=== PATIENT | male | born 1965 | race Caucasian/White ===

== ENCOUNTER 2024-03-27 15:37 | Outpatient (REF) | payer OTHER, SELFPAY | END 2024-03-27 15:38 | disposition home or self-care (01) | LOC: HO.CT 15:37 | PROVIDERS: PCP Internal Medicine; Visit Provider Registered Nurse | DX: G31.84 Mild cognitive impairment of uncertain or unknown etiology (principal) | CPT/HCPCS: 70450 ==

== ENCOUNTER 2024-12-25 11:49 | Outpatient (AMB) | payer OTHER, SELFPAY ==
--- OUTSIDE RECORDS SUMMARY | 2024-12-25 11:52 | XMS_ITS ---
Author Name [facility] Organization Unknown Care Team Organization Name Specialty Phone Email Start Date End Da te [facility] Michelle Roa [facility] 03/05/2023 12/23/19 [facility] Elmo New [facility] 01/10/202312/04 [facility] DEBORAH ANGELO Primary Care 03/13/2022
--- NOTE | 2024-12-25 12:16 | MHC.OFFVIS ---
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 Hard time falling asleep. Burning/shooting pain/numbness/tinging in legs. Sleep study done earlier this year(normal). Patient states last sleep study was 05/2024. Currently on CPAP([employer] for DME). Accompanied by: Self / Same As Patient Allergies lisinopril Allergy (Unknown, Verified 12/25/24 12:22) Cough HPI Comments Details: 59 year old male is a new patient referral, he was referred to us by Neurologist in [facility] for a sleep evaluation. He goes to sleep at 9pm and gets up at 5am to 8am, he has 0-1 bathroom breaks. He has morning headaches 2-3x per week and takes tylenol if they do not go away he knows he will suffer for the entire day. He grinds his teeth and clenches the jaws and will have jaw pain throughout the day. Memory is stable though now more forgetful on trazadone. RLS syndrome taking gabapentin, has neuropathy in hands with numbness tingling and radiating pain, Mood is anxious due to loss of work and arthritis in back in both knees, f/u with [facility] [place] [id number] for cortisone injections. Sertraline 50mg for anxiety. Gel - injections if insurance approves. Weight clinic declines BMI 46.2. [facility] Medical History Hyperlipemia HTN (hypertension) Type 2 diabetes mellitus Family History Mother Neuropathy Social History Patient Tobacco Use Status: Never used Tobacco e-Cigarette/Vaping Use: Never Used Physical Exam Vital Signs: Last Vital Signs Pulse 88 12/25/24 12:19 BP 130/78 12/25/24 12:19 Pulse Ox 96 12/25/24 12:19 Oxygen Delivery Method Room Air 12/25/24 12:19 BMI result Body Mass Index 46.2 Const General: cooperative, comfortable and no acute distress Nutritional Appearance: obese Orientation/consciousness: patient oriented x3 Limitations: ambulation with cane HEENT Face and sinus: Yes face symmetric Teeth and gingiva: other (mallmpti score of 3) Eyes Pupils: Equal, round and reactive pupils present Neck Neck: Yes full ROM Resp Effort & Inspection: normal respiratory effort and able to speak in complete sentences Neuro Other: walks with a cane / balance is off General: patient oriented x3 and moves all extremities Cranial nerves: Yes Facial sensation intact/muscles of mastication intact, Yes Equal, round and reactive pupils present, Yes Normal accommodation reflex present, Yes Nystagmus not present, Yes Normal facial strength present, Yes Midline tongue present, Yes Ability to bilaterally rotate head present and Yes Ability to bilaterally elevate shoulders present Motor exam (neuro): 5/5 motor strength present throughout and Normal motor muscle tone present throughout Deep tendon reflexes (DTR's): Right triceps reflex intensity grade: 2+, Left triceps reflex intensity grade: 2+, Rt Biceps (C5, C6): 2+, Left biceps reflex intensity grade: 2+, Right brachioradialis reflex intensity grade: 2+, Left brachioradialis reflex intensity grade: 2+, Right patellar reflex intensity grade: 2+, Left patellar reflex intensity grade: 2+, Right ankle reflex intensity grade: 2+ and Left ankle reflex intensity grade: 2+ Psych Appearance: well kempt Mental Status: mental status grossly normal Thought process: Normal thought process present Thought content: Normal thought content present Results Reviewed Results Reviewed: CT/CT head/brain wo IV con IMPRESSION: No acute intracranial pathology. Assessment & Plan Assessment & Plan (1) Excessive daytime sleepiness: Code(s): G47.19 - Other hypersomnia Category: Medical Plan HST to r/o AVILA Labs to r/o deficiencies meds; tried in past for sleep: benadryl, gummies melatonin, meds for sleep, ananya AVILA gummies, CBD, THC f/u in 3 months Orders: Orders RT home sleep study Today G47.19 - Other hypersomnia Hemoglobin A1c Today G47.19 - Other hypersomnia Methylmalonic Acid Today G47.19 - Other hypersomnia, G47.9 - Sleep disorder, unspecified, R53.83 - Other fatigue Vitamin D 25-OH Total Today G47.19 - Other hypersomnia Vitamin B6 Today G47.19 - Other hypersomnia TSH reflex Free T4 Today G47.19 - Other hypersomnia Complete Blood Count no Diff Today G47.19 - Other hypersomnia Comprehensive Met. Panel Today G47.19 - Other hypersomnia Ferritin Today G47.19 - Other hypersomnia IRON PROFILE Today G47.19 - Other hypersomnia, G47.9 - Sleep disorder, unspecified, R53.83 - Other fatigue Lyme Synovial Fld PCR Today G47.19 - Other hypersomnia Homocysteine Today G47.19 - Other hypersomnia, G47.9 - Sleep disorder, unspecified, R53.83 - Other fatigue Vitamin B12 and Folate Today G47.19 - Other hypersomnia Vitamin B1 Today G47.19 - Other hypersomnia Patient Instructions: Sleep Hygiene provided: set a scheduled bedtime and wake time to help regulate the circadian rhythm and balance the release of pituitary hormones. Sleep in a dark room, temperatures below 68 degrees, and no devices n bed. Limit caffeinated products 6 hours prior to bed, and limit fluids 2-4 hours prior to bed. Gentle night yoga, diffusing essential oils, and playing soft music can be relaxing. Coding Level of Care Code New Pt Level 4 (49248) Diagnoses Excessive daytime sleepiness G47. Sleep Questionnaire Difficulty falling asleep: Yes Difficulty staying asleep?: Yes Number of arousals: 2 Snoring: Yes Witnessed apneas: Yes Gasping arousals: No Nocturia: No GERD: No Vivid dreams: No Acting out dreams: No Abnormal behavior in sleep: No Abnormal movements in sleep: No Morning headaches: Yes Excessive daytime sleepiness: Yes Daytime naps: No Restless legs: Yes Hallucinations: No Sleep paralysis: No Drop attacks: No Sleep Study: Yes CPAP: Yes
[2024-12-25 12:19] VITALS: BP 130/78; PULSE 88; O2SAT 96; BMI 46.2
== END 2024-12-25 13:18 | disposition home or self-care (01) ==
LOC: HO.HSMS 11:50
PROVIDERS: PCP Internal Medicine; Visit Provider Physician Assistant Medical
DX: G47.19 Other hypersomnia (principal)
CPT/HCPCS: 99204

== ENCOUNTER 2025-01-28 13:31 | Outpatient (AMB) | payer OTHER, SELFPAY ==
--- NOTE | 2025-01-28 13:34 | MHC.OFFVIS ---
Intake Visit Reasons: 3m dpn, insomnia Allergies lisinopril Allergy (Unknown, Verified 01/28/25 13:40) Cough Medication List - Last Reconciled 01/28/25 by Roshni Freeman CNP atorvastatin 80 mg PO BEDTIME blood sugar diagnostic (OneTouch Ultra Test strips) As directed dulaglutide (Trulicity) mg subcut QWEEK gabapentin 300 mg PO DAILY gabapentin orally 1 capsule in the morning and 2 capsules at bedtime; insulin glargine (Lantus Solostar U-100 Insulin) 63 units subcut BID metformin 1,000 mg PO BID sertraline 50 mg PO DAILY triazolam 0.25 mg PO BEDTIME PRN 30 days HPI Comments Details: More pains in legs, can be cramping or shooting-type, or like needles getting stuck in legs, and can happen during the day or night. More tingling in both legs, R > L. Taking gabapentin 900mg in the morning and 1200mg at bedtime. More OA pains in both knees, following with orthopedics. Has tried cortisone injections which has not helped and was not approved for gel injections. Walking with cane, no falls. Blood sugar has been a little high. He was having trouble getting refill of insulin due to insurance prior auth requirements and ran out of medication a few days ago (which his PCP was apparently aware of). He was back on Trulicity for few months now after being without medication for about 10 weeks earlier this year. Sleep was still not so good. He was taking triazolam 0.25mg between 8-9pm and falling asleep around 1-2am, sometimes later. He was sleeping about 6-7 hours/night with medication, but did not feel rested when he woke up. He had sleep study in 05/2024 which was apparently okay. He had appointment with [facility] last month for sleep disorder. Sertraline may be helping a little with mood. He was dealing with a lot of stress at home and related to health. A1c in 02/2024 was 9.0. Memory was about the same. Noticed memory decline over past year with some trouble with word recall. At least 3 times while washing the dishes, he forgot which side of the faucet was for hot or cold water. Has been out of work since 2021. Has a major worsening of insomnia starting around 06/2023, taking 5 hrs to fall asleep and sleeping for 3 hrs. Not working. No naps in the day. He has tried Trazodone 150mg, Hydroxyzine 75mg, Melatonin 10mg, Amitriptyline 30mg, Mirtazapine 22.5mg, and Benadryl without benefit, just made him groggy. Burning sensation, shooting pains, and numbness/tingling in legs, worse after standing for longer periods of time. Feet feel like they are getting squeezed when lay down at night. Feet feel like lead. A1c down to 6.0 in the past. He had paresthesia since 2020 that started in his feet with tingling and numbness and now goes up all the way to his thighs. The symptoms are increased in 2021 and by 2022, his feet were mostly numb and tingly. Previously, he had shooting pains tingling and bee stings in legs and thighs which kept him up at night. Occasionally his right hand goes to sleep and becomes numb and tingly during the night. His mother has a history of neuropathy unrelated to diabetes. [facility] Medical History Hyperlipemia HTN (hypertension) Type 2 diabetes mellitus Family History Mother Neuropathy Social History Patient Tobacco Use Status: Never used Tobacco e-Cigarette/Vaping Use: Never Used Review of Systems Const Denies chills, Denies daytime sleepiness, Reports difficulty sleeping, Denies fatigue, Denies fever(s), Denies frequent falls, Denies headache(s), Denies increased appetite, Denies poor appetite, Denies snoring, Denies weakness, Denies weight gain and Denies weight loss Eyes Denies loss of vision ENT Denies vertigo, Denies dizziness, Denies headache(s) and Denies neck pain Card Denies chest pain at rest, Denies chest pain with activity, Denies syncope, Denies leg edema, Denies palpitations, Denies dyspnea and Denies dyspnea on exertion Resp Denies cough, Denies dyspnea, Denies dyspnea on exertion and Denies snoring GI Denies abdominal pain, Denies constipation, Denies heartburn, Denies diarrhea and Denies nausea Denies urinary frequency, Denies urinary incontinence and Denies urinary urgency Musc Denies abnormal gait, Denies back pain, Denies myalgias, Denies arthralgias, Denies neck pain, Reports numbness and Reports tingling Neuro Denies abnormal gait, Denies vertigo, Denies dizziness, Denies syncope, Denies frequent falls, Denies headache(s), Denies lack of coordination, Denies loss of vision, Denies memory loss, Reports numbness, Denies Other visual disturbances, Denies restless legs, Denies seizure-like activity, Reports tingling, Denies paresthesias, Denies tremor(s) and Denies weakness Psych Reports anxiety, Reports depression, Denies auditory hallucinations, Denies memory loss and Denies visual hallucinations Endo Denies fatigue and Denies palpitations Physical Exam Const Other: General Appearance:? normal, in no acute distress. Heart:? S1, S2 normal, no murmurs. Lungs:? clear anteriorly and posteriorly. Musculoskeletal:? normal. Extremities:? no edema. Psych:? alert, oriented, cognitive function intact, cooperative with exam. Neuro Other: Abnormal Neurological Findings:?Absent ankle reflexes. Decreased vibration and pinprick sensation below the ankle on the left and below the mid tarsal level on the right. Walking with cane. Mental Status: alert and oriented X 3. Normal attention, orientation, memory, and affect. Cranial Nerves: Pupils are equal, round, and reactive to light. External ocular muscles are intact. Visual rodriguez are full, no ptosis. Face is symmetrical, no facial weakness or droop. Facial sensations are normal. Tongue protrudes in midline. Palate elevates symmetrically. Shoulder shrugging is normal Motor Examination: Normal muscle tone, bulk and strength. No atrophy or fasciculations. No drift of the extended upper extremities. DTR 2+ with absent AJs. Plantars are flexor. Sensory Exam: As above, otherwise normal light touch, temperature, pinprick, vibration, and joint-position sensations. Rhomberg sign is absent. Coordination: No ataxia. No titubation. Gait Exam: Slow and cautious with cane. Cerebellar Signs: [id number] is okay. Extrapyramidal System: No tremor, rigidity with normal facial expressions. No bradykinesia. No bradyphrenia. Normal arm swing and posture. No propulsion or retropulsion. Speech: Normal. Results Reviewed Results Reviewed: 01/21/23 NCV/EMG Upper extremities: Normal motor and sensory nerve conduction velocities in the upper extremities. Normal EMG in the right C5-T1 innervated muscles. 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 EMG of the L4-S1 innervated muscles is consistent with chronic neuropathic changes. Labs 02/2024 (by PCP): CBC, CMP, TSH, Vit B12, Vit D ok CT brain 03/2024: No acute intracranial pathology EEG 04/17/2024: WNL Assessment & Plan Assessment & Plan (1) Diabetic neuropathy: Code(s): E11.40 - Type 2 diabetes mellitus with diabetic neuropathy, unspecified Category: Medical Qualifiers: Diabetes mellitus complication detail: diabetic polyneuropathy Diabetes mellitus type: type 2 Qualified Code(s): E11.42 - Type 2 diabetes mellitus with diabetic polyneuropathy Plan: Continue gabapentin 300mg 1 capsule in the morning (with 600mg). Continue gabapentin 600mg 1 capsule in the morning and 2 capsules at bedtime. Control blood sugar. Stay physically active, use cane. (2) Insomnia: Code(s): G47.00 - Insomnia, unspecified Category: Medical Qualifiers: Insomnia type: unspecified Qualified Code(s): G47.00 - Insomnia, unspecified Plan: He had appointment with [facility] for sleep disorder in 12/2024, work up pending. He did not have labs done that were ordered at this visit and he was reminded to complete them. Increase triazolam 0.25mg 2 tablet at bedtime as needed for sleep. (3) Anxiety and depression: Code(s): F41.9 - Anxiety disorder, unspecified; F32.A - Depression, unspecified Category: Medical Plan: Continue sertraline 50mg 1 tablet daily. Plan Meds tried for sleep: Trazodone 150mg, Hydroxyzine 75mg, Melatonin 10mg, Amitriptyline 30mg, Mirtazapine 22.5mg, Benadryl, Zolpidem, eszopiclone, triazolam Medications: Changed From triazolam 0.25 mg PO BEDTIME 30 days PRN 30 tabs 2RF sleep To triazolam 0.5 mg (2 x 0.25 mg) PO BEDTIME PRN 30 tabs 2RF sleep 30 days Coding Level of Care Code Est Pt Level 4 (33892) Diagnoses Diabetic polyneuropathy associated with type 2 diabetes mellitus E11.42 Diabetes mellitus complication detail: diabetic polyneuropathy Diabetes mellitus type: type 2 Insomnia, unspecified type G47.00 Insomnia type: unspecified Anxiety and depression F41.9; F32.A
== END 2025-01-28 14:03 | disposition home or self-care (01) ==
LOC: HO.HSM 13:32
PROVIDERS: PCP Internal Medicine; Referring Provider Internal Medicine; Visit Provider Registered Nurse
DX: E11.42 Type 2 diabetes mellitus with diabetic polyneuropathy (principal); G47.00 Insomnia, unspecified; F41.9 Anxiety disorder, unspecified; F32.A Depression, unspecified
CPT/HCPCS: 99214

== ENCOUNTER 2025-01-28 13:31 | Outpatient (REF) | payer OTHER, SELFPAY ==
[2025-01-28 15:09] LABS: Hematocrit 41.9 % (42.0-52.0); Hemoglobin 13.6 g/dl (14.0-18.0); Mean Corpuscular HGB Conc 32.5 g/dl (31.0-36.0); Mean Corpuscular Hemoglobin 27.5 pg (27.0-33.0); Mean Corpuscular Volume 84.8 fL (80.0-98.0); NRBC Abs Auto 0.000 X10*3/uL (0.0-0.012); NRBC Pct Auto 0.0 /100WBC (0.0-0.2); Platelet Count 352 X10*3/uL (160-400); Red Blood Count 4.94 X10*6/uL (4.60-5.80); White Blood Count 10.8 X10*3/uL (4.8-10.8)
[2025-01-28 15:35] LABS: Alanine Aminotransferase 32 U/L (0-40); Albumin Level 4.3 g/dL (3.5-5.0); Alkaline Phosphatase 114 U/L (39-117); Anion Gap 11 (12-20); Aspartate Amino Transferase 27 U/L (5-37); Blood Urea Nitrogen 11 mg/dL (9-16); Calcium 9.6 mg/dL (8.4-10.2); Carbon Dioxide 31 mmol/L (22-29); Chloride 102 mmol/L (96-108); Estimated Glomerular Filt Rate > 60; Iron 47 mcg/dL (45-160); Percent Iron Saturation 18 % (15-50); Potassium 4.9 mmol/L (3.3-5.1); Sodium 139 mmol/L (135-145); Total Iron Binding Capacity 266 mcg/dL (228-428); Total Protein 8.0 g/dL (6.5-8.0); Unsaturated Iron Binding 219 ug/dL
[2025-01-28 15:53] LABS: Ferritin 97 ng/mL (20-250)
[2025-01-28 16:02] LABS: Folate 14.5 ng/mL (> or = 4.0); Vitamin B12 789 pg/mL (200-900)
== END 2025-01-28 13:32 | disposition home or self-care (01) ==
LOC: HO.LAB 13:31
PROVIDERS: Physician Assistant Medical; PCP Internal Medicine; Referring Provider Internal Medicine; Visit Provider Registered Nurse
DX: E11.42 Type 2 diabetes mellitus with diabetic polyneuropathy (principal); G47.00 Insomnia, unspecified; F41.9 Anxiety disorder, unspecified; F32.A Depression, unspecified; Z79.899 Other long term (current) drug therapy; Z79.84 Long term (current) use of oral hypoglycemic drugs; Z79.4 Long term (current) use of insulin
CPT/HCPCS: 36415; 80053; 82306; 82607; 82728; 82746; 83036; 83090; 83540; 83921; 84207; 84425; 84443; 85027; 87476

== ENCOUNTER 2025-04-22 13:53 | Outpatient (AMB) | payer OTHER, SELFPAY ==
--- NOTE | 2025-04-22 13:57 | MHC.OFFVIS ---
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 He reports neuropathy symptoms including numbness up to the knees and sharp, stabbing, shooting pains in both legs up to his thighs. Patient describes the pain as pulsing, throbbing, burning, and tingling, comparing it to being sliced with a knife. The pain is rated 7/10 at bedtime, sometimes higher, and is not well-controlled with his current gabapentin regimen of 2100 mg daily (900 mg in the morning and 1200 mg at night). An EMG performed about two years ago confirmed neuropathy, though he does not recall its severity. Patient has a history of uncontrolled diabetes with a recent HbA1c of 10.1 and is on insulin. 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 The patient also has a sleep disorder for which he uses a CPAP machine, but his leg pain now keeps him awake. He has previously tried trazodone, hydroxyzine, melatonin, and amitriptyline for sleep. He also reports experiencing headaches and forgetfulness, for which he states he was tested with normal results. His surgical history includes an umbilical hernia repair 7-8 years ago and an ankle screw placement 33 years ago. He has stopped smoking, does not drink alcohol, and drinks four cups of coffee daily. Pain Description - Location: The patient reports numbness up to the knees bilaterally, with shooting, sharp, stabbing pains that extend up to both thighs. - Quality: The pain is described as pulsing, throbbing, shooting, sharp, burning, tingling, and numb. - Severity: Pain is rated as a 7/10 at bedtime, and sometimes it can be even higher, despite being on gabapentin. - Exacerbating Factors: Pain is worse at bedtime. - Interference with Function: The leg and foot pain interferes with his sleep. Pain Management - Affect: The patient's sleep is disrupted by his leg pain. - Analgesia: He is currently taking gabapentin 2100 mg daily (900 mg AM, 1200 mg PM), which he feels is providing almost no relief. - Activities of Daily Living: His leg pain impairs his sleep, and back pain limits his ability to bend and put on his socks. - Adverse Effects: The patient reports forgetfulness, which has been evaluated and he attributes to his sleep medications. - Aberrant Drug-Related Behaviors: No aberrant behaviors were noted. [facility] Medical History Hyperlipemia HTN (hypertension) Type 2 diabetes mellitus Family History Mother Neuropathy Social History Patient Tobacco Use Status: Never used Tobacco e-Cigarette/Vaping Use: Never Used Review of Systems Narrative - Neurological: Reports bilateral lower extremity numbness, tingling, and sharp, shooting pains up to the thighs. - He also reports headaches and forgetfulness. - Musculoskeletal: Reports back pain that limits his ability to bend. - Psychiatric: Reports sleep disturbance secondary to leg and foot neuropathic pain. Const All systems reviewed & are unremarkable except as noted in HPI and below Physical Exam Vital Signs: Last Vital Signs Pulse 87 04/22/25 14:02 BP 174/93 H 04/22/25 14:02 Pulse Ox 96 04/22/25 14:02 Oxygen Delivery Method Room Air 04/22/25 14:02 BMI result Body Mass Index 44.4 General: Appears afebrile. Alert and oriented. Mood and affect appropriate. Follows and participates in conversation appropriately. Respiratory effort is unlabored. No cough. Able to transition from sit to stand unassisted. Ambulates with bilaterally normal heel strike and toe off. Extrem Other: Swelling noted bilaterally in the feet. Multiple excoriations, reported to be self-inflicted, are present on the legs. Onychomycosis is present, evidenced by yellow discoloration of the toenails bilaterally. There is a decreased sensation over the soles of the feet and toes. Reports numbness, burning, hot, tingling in both feet, worse at night time. No soft tissue swelling or warmth. +2 pedal pulses bilaterally. Poor foot care. General: Yes capillary refill normal, Yes no calf tenderness, No clubbing and No cyanosis Results Reviewed Results Reviewed: 01/21/23 NCV/EMG Upper extremities: Normal motor and sensory nerve conduction velocities in the upper extremities. Normal EMG in the right C5-T1 innervated muscles. 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 EMG of the L4-S1 innervated muscles is consistent with chronic neuropathic changes. Assessment & Plan Assessment & Plan (1) Chronic painful diabetic neuropathy: Code(s): E11.40 - Type 2 diabetes mellitus with diabetic neuropathy, unspecified Category: Medical (2) Bilateral foot pain: Code(s): M79.671 - Pain in right foot; M79.672 - Pain in left foot Category: Medical Plan The plan is to discontinue gabapentin due to its ineffectiveness for his painful diabetic neuropathy. He will be switched to Lyrica, with the total daily dose equivalent to his previous 2100 mg of gabapentin. The patient was counseled to not take gabapentin and Lyrica together and to start the first dose of Lyrica at bedtime to monitor for drowsiness. Interventional options were discussed, including a spinal cord stimulator, for which he is not currently a candidate as it requires an HbA1c below 7.5. Qutenza patch treatment was also reviewed, but he is not a candidate at this time due to onychomycosis and the current condition of his feet; this can be reconsidered after his foot health improves. A referral will be placed for Podiatry to address the onychomycosis and monitor for complications such as Charcot foot, which was discussed at length. The importance of glycemic control was strongly emphasized to prevent further irreversible nerve damage and other complications. All questions and concerns have been answered and patient agreed with the treatment plan. Follow up for medication review and sooner as needed. Patient was informed and verbally consented to the use of an ambient scribe for clinic note documentation during this visit. Orders: Referrals Podiatry Referral B35.1 - Tinea unguium, E11.40 - Type 2 diabetes mellitus with diabetic neuropathy, unspecified Medications: New pregabalin 200 mg PO BID 60 caps 0RF pain 30 days E11.40 - Type 2 diabetes mellitus with diabetic neuropathy, unspecified Coding Level of Care Code New Pt Level 4 (12771) Diagnoses Chronic painful diabetic neuropathy E11.40 Bilateral foot pain M79.671; M79.672
[2025-04-22 14:02] VITALS: BP 174/93; PULSE 87; O2SAT 96; BMI 44.4
--- OUTSIDE RECORDS SUMMARY | 2025-04-22 18:08 | XMS_ITS | Clinical Summary ---
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 Via nasal mask/ [employer] - Nasal Active pen needle, diabetic 32 gauge x 5/32 needle Use to inject Insulin pen twice daily 024 Active OneTouch UltraSoft Lancets Use to test blood sugar up to four times a day as directed 019 Active triazolam (HALCION) 0.25 mg tablet Take by mouth at bedtime as needed. at bedtime 024 Active OneTouch Ultra Test test strip Use as instructed 100 each 1 025 Active sertraline (ZOLOFT) 50 mg tablet Take 1 tablet (50 mg total) by mouth 1 (one) time each day. 025 Active metFORMIN (GLUCOPHAGE) 500 mg tablet Take 2 tablets (1,000 mg total) by mouth 2 (two) times a day with meals. 360 tablet 1 025 Active gabapentin (NEURONTIN) 300 mg capsule TAKE ONE CAPSULE BY MOUTH DAILY AT BEDTIME IN ADDITION TO GABAPENTIN 600MG THREE TIMES A DAY 90 capsule 1 025 Active atorvastatin (LIPITOR) 40 mg tablet Take 1 tablet (40 mg total) by mouth 1 (one) time each day. 90 tablet 1 025 Active losartan (Cozaar) 25 mg tablet Take 1 tablet (25 mg total) by mouth 1 (one) time each day. 90 each 1 025 Active hydroCHLOROthiazi de (HYDRODIURIL) 25 mg tablet Take 1 tablet (25 mg total) by mouth at bedtime. 90 tablet 1 025 Active gabapentin (NEURONTIN) 600 mg tablet Take 1 tablet (600 mg total) by mouth 3 (three) times a day. In addition to the 300 mg at bedtime 270 tablet 1 025 Active insulin degludec (Tresiba FlexTouch U-100) 100 unit/mL (3 mL) injection penIndications:Ty pe 2 diabetes mellitus with diabetic polyneuropathy, with long-term current use of insulin ([facility] V24, [facility] V28) Inject 64 Units under the skin 2 (two) times a day. 135 mL 1 025 Active cholecalciferol (VITAMIN D-3) 50 mcg (2,000 unit) tablet TAKE 1 TABLET BY MOUTH DAILY 90 tablet 1 025 Active dulaglutide (Trulicity) 4.5 mg/0.5 mL pen injector injectionIndicati ons:Primary hypertension,Bila teral primary osteoarthritis of knee,Type 2 diabetes mellitus with diabetic polyneuropathy, with long-term current use of insulin ([facility] V24, [facility] V28) Inject 0.5 mL (4.5 mg total) under the skin every 7 (seven) days. 6 mL 1 025 Active tiZANidine (Zanaflex) 4 mg capsule Take 1 capsule (4 mg total) by mouth at bedtime. 90 capsule 025 Active celecoxib (CeleBREX) 100 mg capsule Take 1 capsule (100 mg total) by mouth 2 (two) times a day with meals. 28 capsule 025 Active ferrous sulfate 325 mg (65 mg elemental iron) tablet TAKE ONE TABLET BY MOUTH EVERY DAY 90 tablet 1 Active ferrous sulfate 325 mg (65 mg elemental iron) tablet Take 1 tablet (325 mg total) by mouth 1 (one) time each day. 90 tablet 1 025 2024 Discontinued dulaglutide (TRULICITY) 3 mg/0.5 mL pen injector injection Inject 0.5 mL (3 mg total) under the skin 1 (one) time per week. 6 mL 1 025 2024 Discontinued(D ose adjustment) insulin glargine-yfgn (Semglee,insulin glarg-yfgn,Pen) 100 unit/mL (3 mL) injection Inject 64 Units under the skin 2 (two) times a day. Increase 2 units every five days for blood sugars of above 160, Max dose-70 units twice a day 135 mL 1 025 2024 Discontinued(C ost of medication) cyclobenzaprine (FLEXERIL) 5 mg tablet Take 1 tablet (5 mg total) by mouth at bedtime as needed for muscle spasms. 30 tablet 025 2024 Discontinued(A lternate therapy) Active Problems Problem Noted Date Diagnosed Date Bilateral primary osteoarthritis of knee Anxiety and depression 07/23/2024 Transaminitis 03/26/2024 Insomnia 03/26/2024 Hepatic steatosis 03/06/2024 Absolute anemia 03/06/2024 Morbid obesity with BMI of 40.0-44.9, adult 05/2023 Type 2 diabetes mellitus wit h diabetic polyneuropathy, with long-term current use of insulin 03/06/2024 Leukocytosis 06/18/2018 Anatomical narrow angle, bilateral 08/13/2016 Macular scar 08/13/2016 Vitamin D insufficiency 01/27/2013 Opioid dependence 12/04/2012 Hyperlipidemia 10/17/2012 Primary hypertension 08/06/2012 Hypotestosteronism 08/07/2011 AVILA on CPAP 08/14/2010 Overview (03/06/2024): AHI 12.9, REM AHI 58. Major depressive disorder, recurrent episode, mo derate 10/19/2009 Encounters Date Type Department Care Team Description 03/29/2025 Results Follow-Up [address] [phone] Maddy Lai PA 03/25/2025 2:55 PM EST - 03/25/2025 11:59 PM EST Hospital Encounter XRAY [address] [phone] Chronic left shoulder pain Discharge Disposition: Home or Self Care 03/25/2025 2:45 PM EST Office Visit [address] [phone] Maddy Lai PA Primary hypertension (Primary Dx); Bilateral primary osteoarthritis of knee; Type 2 diabetes mellitus with diabetic polyneuropathy, with long-term current use of insulin (CMS/HCC V24, CMS/HCC V28); Chronic left shoulder pain; Mixed hyperlipidemia; Osteoarthritis of spine with radiculopathy, lumbar region; Right-sided chest wall pain 03/25/2025 Results Follow-Up [address] [phone] Maddy Lai PA 03/24/2025 12:10 PM EST Lab Draw Station [address] Bilateral primary osteoarthritis of knee; Primary hypertension; Type 2 diabetes mellitus with diabetic polyneuropathy, with long-term current use of insulin (CMS/HCC V24, CMS/HCC V28); Poorly-controlled hypertension; Poorly controlled diabetes mellitus (CMS/HCC V24, CMS/HCC V28) 01/22/2025 9:45 AM EDT Office Visit Orthopedics [address] [phone] Deven Harmon PA Bilateral primary osteoarthritis of knee (Primary Dx); Chronic pain of right knee 01/21/2025 10:10 AM EDT - 01/21/2025 11:59 PM EDT Hospital Encounter XRAY [address] [phone] Right-sided chest wall pain Discharge Disposition: Home or Self Care 01/21/2025 9:45 AM EDT Office Visit [address] [phone] Maddy Lai PA Skin cyst (Primary Dx); Primary hypertension; Type 2 diabetes mellitus with diabetic polyneuropathy, with long-term current use of insulin ([facility] V24, [facility] V28); Right-sided chest wall pain from Last 3 Months Immunizations Immunization Administration Dates Next Due Influenza Quadravalent, MDCK , 0.5ml, preservative free (Flucelvax) 6mo and older 01/18/2020,06/16/2018 Influenza Quadravalent, MDCK , 0.5ml, with preservative (Flucelvax) 6mo and older 05/20/2017 Influenza trivalent, 0.5mL, preservative free (Fluarix; FluLaval; Fluzone) ages 6mo and older (Afluria) 3 years and older 02/21/2016,05/09/2015,02/25/2014,01/12,02/19/2012,03/14/2011 Pneumococcal polysaccharide 23 valent (Pneumovax 23) 2yo and older 11/16/2013 Td Tetanus diptheria (Tdvax) 7yo and older 11/28/2021,07/24/2000 Tdap Tetanus diptheria acell ular pertussis (Boostrix; Adacel) 7yo and older 03/14/2011 Surgical History Surgery Date Site/Laterality Comments OTHER SURGICAL HISTORY PROCEDURE: ME OPTX ANKLE DISLOCATION W/REPAIR/INT/XTRNL FIXJ TONSILLECTOMY 16 YO PROCEDURE: HISTORICAL TONSILLECTOMY OTHER SURGICAL HISTORY 02/28/2015 PROCEDURE: COLONOSCOPY, SURGICAL UPPER GASTROINTESTINAL ENDOSCOPY 02/28/2015 PROCEDURE: ME UPPER GI ENDOSCOPY PERFORMED; COMMENT: Biopsies performed OTHER SURGICAL HISTORY PROCEDURE: ME RADIAL KERATOTOMY ESOPHAGOGASTRODUODENOSCOPY 01/04/2021 PROCEDURE: ME EGD TRANSORAL BIOPSY SINGLE/MULTIPLE; COMMENT: no significant abnormality noted. biopsy pending Medical History Medical History Date Comments Back pain DX:Back pain; CO MMENT: SPURRING Ankle fracture AGE 26 DX:Ankle fractur e; COMMENT: LEFT History of drug abuse ([facility]/ CC V24, [facility] V28) 12/04/2012 DX:History of drug abuse ([facility] C) Type II or unspecified type diabetes mellitus with unspecified complication, not stated as uncontrolled DX:Type II or unspecified ty pe diabetes mellitus with unspecified complication, not stated as uncontrolled Testosterone deficiency DX:Testo sterone deficiency Iron deficiency anemia DX:Iron d eficiency anemia Hepatic steatosis DX:Hepatic romina atosis Chronic systolic heart failu re ([facility] V24, [facility] V28) DX:Chronic systolic heart f ailure ([facility]); COMMENT: EF 50% echocardiogram 01/2017 Family History Medical History Relation Name Comments Sleep apnea Brother 1 Alcohol/Drug Father alcohol Diabetes Father Heart attack Father stent implant Breast cancer Maternal Grandmother Alcohol/Drug Mother alcohol Other: Uncle thyroid cancer Mother's side Throat cancer Uncle Blindness Neg Hx Cataracts Neg Hx Glaucoma Neg Hx Macular degeneration Neg Hx Strabismus Neg Hx Relation Name Status Comments Brother 1 Brother 2 Alive 1 brother , sle ep apnea Daughter Alive 1 daughter age Evy Father (Age 70) [place], DM Maternal Grandfather Maternal Grandmother Mother Alive Healthy Mother's side Paternal Grandfather Paternal Grandmother Son Alive 2 sons - 13 yea r old beverly 18 ADHD, Tourettes, 11 year old Wilmer ADD Uncle Social History Tobacco Use Types Packs/Day Years Used Date Smoking Tobacco: Former Cigarettes 3 Q uit: 05/06/1984 Smokeless Tobacco: Never Tobacco Cessation:Counseling Given: Not Answered Alcohol Use Standard Drinks/Week Comments Not Currently 0 (1 standard drink = 0.6 oz pur e alcohol) Housing Instability Answer Date Recorde d Are you worried that in the next 2 months you may not have stable housing? Patient declined 09/13/2024 Food Access & Nutrition Answer Date Rec orded Do you have access to a vari ety of food including fruits and vegetables? Patient declined 09/13/2024 Access to Healthcare Answer Date Record ed Within the last 3 months, eliu hernandez many times did you visit the emergency department for your medical care? 1 09/13/2024 Health Literacy Answer Date Recorded How often do you need to hav e someone help you when you read instructions, pamphlets, or other written material from your doctor or pharmacy? Patient declined 09/13/2024 Caregiver: How often do you need to have someone help you when you read instructions, pamphlets, or other written material from your doctor or pharmacy? Not on file 025 Financial Risk Answer Date Recorded How hard is it for you to pa y for the very basics like food, housing, medical care, and air conditioning / heating? Somewhat hard 09/13/2024 Transportation Answer Date Recorded Has the lack of transportati on kept you from meetings, work, or from getting things needed for daily living? No 09/13/2024 Has the lack of transportati on kept you from medical appointments or from getting medications? Patient declined 09/13/2024 Social Isolation Answer Date Recorded How often do you feel lonely or isolated from those around you? Patient declined 09/13/2024 Food Risk Answer Date Recorded Within the past 12 months we worried whether our food would run out before we got money to buy more. Never true 09/13/2024 Within the past 12 months th e food we bought just didn't last and we didn't have money to get more. Never true 09/13/2024 Dependent Care Answer Date Recorded Do you need help finding or paying for care for your loved ones. For example, child care worker or elderly care for an older adult? Patient declined 09/13/2024 Education Answer Date Recorded Do you think completing more education or training, like finishing a GED, going to college, or learning a trade, would be helpful for you? Patient declined 09/13/2024 Employment and Income Answer Date Recor ded During the last four weeks, have you been actively looking for work? Patient declined 09/13/2024 Living Situation Answer Date Recorded What is your living situation? Unrecognized valu e 09/13/2024 Interpersonal Safety Answer Date Record ed Physical Abuse Unrecognized value 10/29/2024 Verbal Abuse Unrecognized value 10/29/2024 Sex and Gender Information Value Date Recorded Sex Assigned at Male 08/25/2024 1:39 PM EDT Legal Sex Male 12:41 AM EST Gender Identity Male 08/25/2024 1:39 PM EDT Sexual Orientation Straight 08/25/2024 1: 39 PM EDT Last Filed Vital Signs Vital Sign Reading Time Taken Comments Blood Pressure 136/75 03/25/2025 2:24 PM EST Pulse 79 03/25/2025 2:24 PM EST Temperature 36.4 C (97.6 F) 03/25/2025 2:24 PM EST Respiratory Rate 15 03/25/2025 2:24 PM EST Oxygen Saturation 97% 03/25/2025 2:24 PM EST Inhaled Oxygen Concentration - - Weight 150 kg (330 lb 3.2 oz) 03/25/2025 2:24 PM EST Height 182.9 cm (6') 03/25/2025 2:24 PM EST Body Mass Index 44.78 03/25/2025 2:24 PM EST Plan of Treatment Upcoming Encounters Date Type Department Care Team (Late st Contact Info) Description 05/18/2025 2:30 PM EST Office Visit Orthopedics [address] [phone] Deven Harmon PA [address] [place] [phone] 07/29/2025 11:00 AM EDT Office Visit [facility] - [address] [phone] Elmo New MD [address] [place] [address] 11/22/2025 1:00 PM EDT Office Visit Gastroenterology - [address] [place] [address] [phone] Yesi Banuelos NP [address] [address] Health Maintenance Due Date Last Done Comments Drug Screen 1965 Non-Opioid Controlled Substance Agreement 1964 Diabetes: Annual Foot Exam 1974 Diabetes: Annual Retina Eye Exam 1974 Hepatitis A Vaccines (1 of 2 - Risk 2-dose series) 09/01/1983 RSV Immunization Adult Patients (1 - Risk 50-74 years 1-dose series) 2014 Zoster Vaccines (1 of 2) 2014 Pneumococcal Vaccine: 50+ Years (2 of 2 - PCV) 11/16/2014 11/16/2013 HIV Screening 04/14/2022 COVID-19 Vaccine ( season) 2025 02/18/2021, 08/06/2020, 07/16/2020 Influenza Vaccine (#1) 2025 , 02/18/2021, 01/18/2020, Additional history exists Social Influencers of Health Screening 09/13/2025 09/13/2024 Diabetes: Blood Sugar Control Test (HGBA1C) 09/21/2025 03/24/2025, 10/26/2024, 07/28/2024, Additional history exists Diabetes: Annual Urine Albumin-Creatinine Ratio (uACR) 03/24/2026 03/24/2025, 07/28/2024, 10/31/2022 Diabetes: Annual GFR (Glomerular Filtration Rate) 03/24/2026 03/24/2025, 08/25/2024, 07/28/2024, Additional history exists Hypertension/CHF/CAD Annual BMP Blood Test 03/24/2026 03/24/2025, 08/25/2024, 07/28/2024, Additional history exists Cholesterol Screening (Lipid Panel) 07/28/2029 07/28/2024, 03/05/2024, 03/05/2024 DTaP,Tdap,and Td Vaccines (4 - Td or Tdap) 11/29/2031 11/28/2021, 03/14/2011, 07/24/2000 Colorectal Cancer Screening: Colonoscopy 10/29/2034 10/29/2024, 02/28/2015 Hepatitis C Screening Completed 08/28/2013 Depression Screening Completed 09/13/2024 HIB Vaccines Aged Out No longer eligi ble based on patient's age to complete this topic HPV Vaccines Aged Out No longer eligi ble based on patient's age to complete this topic Hepatitis B Vaccines Aged Out No long er eligible based on patient's age to complete this topic IPV Vaccines Aged Out No longer eligi ble based on patient's age to complete this topic MMR Vaccines Aged Out No longer eligi ble based on patient's age to complete this topic Meningococcal ACWY Vaccine Aged Out N o longer eligible based on patient's age to complete this topic Meningococcal B Vaccine Aged Out No l onger eligible based on patient's age to complete this topic RSV Immunization Patients Under 20 months Aged Out No longer eligible based on patient's age to complete this topic Varicella Vaccines Aged Out No longer eligible based on patient's age to complete this topic Procedures Procedure Name Priority Date/Time Associated Diagnosis Comments XR SHOULDER 2+ VIEWS LEFT Routine 03/25/2025 3:03 PM EST Chronic left shoulder pain CBC WITH AUTO DIFFERENTIAL Routine 03/24/2025 12:17 PM EST Bilateral primary osteoarthritis of knee Primary hypertension Type 2 diabetes mellitus with diabetic polyneuropathy, with long-term current use of insulin ([facility]/HCC V24, CMS/HCC V28) Poorly-controlled hypertension Poorly controlled diabetes mellitus (CMS/HCC V24, CMS/HCC V28) HEMOGLOBIN A1C Routine 03/24/2025 12:17 PM EST Bilateral primary osteoarthritis of knee Primary hypertension Type 2 diabetes mellitus with diabetic polyneuropathy, with long-term current use of insulin (CMS/HCC V24, CMS/HCC V28) Poorly-controlled hypertension Poorly controlled diabetes mellitus (CMS/HCC V24, CMS/HCC V28) CBC AND DIFFERENTIAL Routine 03/24/2025 12:17 PM EST Bilateral primary osteoarthritis of knee Primary hypertension Type 2 diabetes mellitus with diabetic polyneuropathy, with long-term current use of insulin (CMS/HCC V24, CMS/HCC V28) Poorly-controlled hypertension Poorly controlled diabetes mellitus (CMS/HCC V24, CMS/HCC V28) COMPREHENSIVE METABOLIC PANEL Routine 03/24/2025 12:17 PM EST Bilateral primary osteoarthritis of knee Primary hypertension Type 2 diabetes mellitus with diabetic polyneuropathy, with long-term current use of insulin (CMS/HCC V24, CMS/HCC V28) Poorly-controlled hypertension Poorly controlled diabetes mellitus (CMS/HCC V24, CMS/HCC V28) MICROALBUMIN CREATININE URINE RATIO Routine 03/24/2025 12:17 PM EST Bilateral primary osteoarthritis of knee Primary hypertension Type 2 diabetes mellitus with diabetic polyneuropathy, with long-term current use of insulin (CMS/HCC V24, CMS/HCC V28) Poorly-controlled hypertension Poorly controlled diabetes mellitus ([facility] V24, [facility] V28) EXTERNAL CLINICAL LAB 01/28/2025 EXTERNAL CLINICAL LAB 01/28/2025 EXTERNAL CLINICAL LAB 01/28/2025 EXTERNAL CLINICAL LAB 01/28/2025 EXTERNAL CLINICAL LAB 01/28/2025 EXTERNAL CLINICAL LAB 01/28/2025 ME ARTHROCENTESIS/ASPIRA TION/INJECTION MAJOR JOINT/BURSA W/O U/S GUIDANCE Routine 01/22/2025 9:45 AM EDT Bilateral primary osteoarthritis of knee Chronic pain of right knee XR RIBS W CHEST 3+ VIEWS RIGHT Routine 01/21/2025 10:22 AM EDT Right-sided chest wall pain COLONOSCOPY Routine 10/29/2024 8:58 AM EDT Bright red blood per rectum Diarrhea, unspecified type Chronic upper abdominal pain LIPID PANEL WITH REFLEX TO DIRECT LDL Routine 07/28/2024 2:18 PM EDT Type 2 diabetes mellitus with diabetic polyneuropathy, with long-term current use of insulin ([facility] V24, [facility] V28) Primary hypertension Transaminitis Mixed hyperlipidemia AVILA on CPAP Morbid obesity with BMI of 40.0-44.9, adult ([facility] V24, [facility] V28) Insomnia, unspecified type Anxiety and depression Screening for prostate cancer HEPATITIS C SCREENING Routine 08/28/2013 from Last 3 Months or Most Recently Relevant to Health Maintenance Results * XR Shoulder 2+ Views Left (03/25/2025 3:03 PM EST) Anatomical Region Laterality Modality Upper Extremities, Shoulder Left Radi ographic Imaging 03/26/2025 8:57 AM EST Impressions 03/26/2025 9:00 AM EST Mild degenerative changes. Calcific tendinopathy. -------- FINAL REPORT -------- Dictated By: Precious Sorto Dictated Date: 03/26/2025 08:57 ET Assigned Physician: Precious Sorto Reviewed and Electronically Signed By: Precious Sorto Signed Date: 03/26/2025 09:00 ET Workstation ID: [id number] Transcribed By: Self Edit Transcribed Date: 03/26/2025 08:57 ET Narrative 03/26/2025 9:00 AM EST EXAM: Left shoulder x-ray HISTORY: Chronic left shoulder pain. COMPARISON: None FINDINGS: 4 views performed. Mild degenerative changes at the acromioclavicular joint. Spurring at the inferior glenohumeral joint with preserved joint space. No acute fracture or dislocation detected. No destructive bone lesion. Tiny soft tissue calcification adjacent to the lateral humeral head from calcific tendinopathy. Procedure Note Precious Sorto MD - 03/26/2025 EXAM: Left shoulder x-ray HISTORY: Chronic left shoulder pain. COMPARISON: None FINDINGS: 4 views performed. Mild degenerative changes at the acromioclavicular joint. Spurring at theinferior glenohumeral joint with preserved joint space. No acute fractureor dislocation detected. No destructive bone lesion. Tiny soft tissuecalcification adjacent to the lateral humeral head from calcifictendinopathy. IMPRESSION: Mild degenerative changes. Calcific tendinopathy. -------- FINAL REPORT -------- Dictated By: Precious Sorto Dictated Date: 03/26/2025 08:57 ET Assigned Physician: Precious Sorto Reviewed and Electronically Signed By: Precious Sorto Signed Date: 03/26/2025 09:00 ET Workstation ID: [id number] Transcribed By: Self Edit Transcribed Date: 03/26/2025 08:57 ET Maddy Reva Jonatan Lai PA IMG XR PROCEDURES Final Result * (ABNORMAL) CBC auto differential (03/24/2025 12:17 PM EST) WBC 11.6(H) 4.8 - 10.8 K/[facility] LAB HEMETOLOGY METHOD 03/24/2025 3:44 PM EST [facility] RBC 5.00 4.50 - 5.50 M/[facility] LAB HEMETOLOGY METHOD 03/24/2025 3:44 PM [facility] Hemoglobin 13.5 13.5 - 17.5 g/dL LAB HEMETOLOGY METHOD 03/24/2025 3:44 PM [facility] Hematocrit 41.7(L) 42.0 - 54.0 % LAB HEMETOLOGY METHOD 03/24/2025 3:44 PM [facility] MCV 84.2 79.0 - 98.0 FL LAB HEMETOLOGY METHOD 03/24/2025 3:44 PM [facility] MCH 27.3 27.0 - 32.0 pcg LAB HEMETOLOGY METHOD 03/24/2025 3:44 PM [facility] MCHC 32.4 32.0 - 37.0 g/dL LAB HEMETOLOGY METHOD 03/24/2025 3:44 PM [facility] RDW 13.4 11.0 - 15.0 % LAB HEMETOLOGY METHOD 03/24/2025 3:44 PM [facility] Platelets 341 130 - 400 K/[facility] LAB HEMETOLOGY METHOD 03/24/2025 3:44 PM [facility] MPV 10.2 7.0 - 11.0 FL LAB HEMETOLOGY METHOD 03/24/2025 3:44 PM [facility] NRBC 0.0 <1.0 % LAB HEMETOLOGY METHOD 03/24/2025 3:44 PM [facility] NRBC Absolute 0.00 <0.10 K/mcL LAB HEMETOLOGY METHOD 03/24/2025 3:44 PM [facility] Neutrophils Relative 68.4 % LAB HEMETOLOGY METHOD 03/24/2025 3:44 PM [facility] Lymphocytes Relative 22.7 % LAB HEMETOLOGY METHOD 03/24/2025 3:44 PM [facility] Monocytes Relative 6.3 % LAB HEMETOLOGY METHOD 03/24/2025 3:44 PM EST [facility] Eosinophils Relative 1.7 % LAB HEMETOLOGY METHOD 03/24/2025 3:44 PM [facility] Basophils Relative 0.5 % LAB HEMETOLOGY METHOD 03/24/2025 3:44 PM [facility] Immature Granulocytes Relative 0.4 % LAB HEMETOLOGY METHOD 03/24/2025 3:44 PM [facility] Neutrophils Absolute 7.89(H) 1.50 - 7.00 K/mcL LAB HEMETOLOGY METHOD 03/24/2025 3:44 PM [facility] Lymphocytes Absolute 2.62 1.00 - 5.00 K/mcL LAB HEMETOLOGY METHOD 03/24/2025 3:44 PM [facility] Monocytes Absolute 0.73 0.20 - 1.00 K/mcL LAB HEMETOLOGY METHOD 03/24/2025 3:44 PM [facility] Eosinophils Absolute 0.20 0.00 - 0.50 K/mcL LAB HEMETOLOGY METHOD 03/24/2025 3:44 PM [facility] Basophils Absolute 0.06 0.00 - 0.20 K/mcL LAB HEMETOLOGY METHOD 03/24/2025 3:44 PM [facility] Immature Granulocytes Absolute 0.05(H) 0.00 - 0.03 K/mcL LAB HEMETOLOGY METHOD 03/24/2025 3:44 PM [facility] Blood Venous blood specimen / Unknown Venipuncture / Unknown 03/24/2025 12:17 PM EST 03/24/2025 12:17 PM EST us Maddy JENSEN LAB BLOOD ORDERABLES Fin al Result [facility] [address] [place] [address], [place] [phone] * Microalbumin creatinine urine ratio (03/24/2025 12:17 PM EST) Creatinine, Urine 148.0 mg/dL 03/24/2025 5:47 PM EST [facility] Microalb, Ur 4.0 0.0 - 29.0 mg/L 03/24/2025 5:47 PM EST [facility] Microalb/Creat Ratio 3 <30 mg/g creat 03/24/2025 5:47 PM [facility] Urine Urine specimen obtained by clean catch procedure / Unknown Non-blood Collection / Unknown 03/24/2025 12:17 PM EST 03/24/2025 12:17 PM EST Maddy JENSEN LAB URINE ORDERABLES Fin al Result [facility] [address] [place] [address], [place] [phone] * (ABNORMAL) Hemoglobin A1c (03/24/2025 12:17 PM EST) [facility] Hemoglobin A1C 10.1(H) <6.5 % LAB CHEMISTRY METHOD 03/24/2025 9:46 PM EST [facility] Mean Bld Glu Estim. 243 mg/dL LAB CHEMISTRY METHOD 03/24/2025 9:46 PM EST [facility] Blood Venous blood specimen / Unknown Venipuncture / Unknown 03/24/2025 12:17 PM EST 03/24/2025 12:17 PM EST Maddy JENSEN LAB BLOOD ORDERABLES Fin al Result [facility] [address] [place] [address], [place] [phone] * (ABNORMAL) Comprehensive metabolic panel (03/24/2025 12:17 PM EST) Sodium 137 133 - 145 mmol/L 03/24/2025 5:04 PM [facility] Potassium 4.1 3.5 - 5.5 mmol/L 03/24/2025 5:04 PM [facility] Chloride 98 96 - 110 mmol/L 03/24/2025 5:04 PM [facility] CO2 28 21 - 32 mmol/L 03/24/2025 5:04 PM [facility] Anion Gap 11 3 - 11 03/24/2025 5:04 PM [facility] Glucose 233(H) 70 - 100 mg/dL 03/24/2025 5:04 PM [facility] BUN 18 5 - 25 mg/dL 03/24/2025 5:04 PM [facility] Creatinine 0.75 0.70 - 1.30 mg/dL 03/24/2025 5:04 PM [facility] eGFR 103 >=60 mL/min/1. 73m2 03/24/2025 5:04 PM [facility] Comment:Calculation based on the Chronic Kidney Disease Epidemiology Collaboration (CKD-EPI) equation refit without adjustment for race. BUN/Creatinine Ratio 24.0 03/24/2025 5:04 PM [facility] Calcium 9.3 8.5 - 10.5 mg/dL 03/24/2025 5:04 PM [facility] AST (SGOT) 20 10 - 42 unit/L 03/24/2025 5:04 PM [facility] ALT (SGPT) 35 10 - 60 unit/L 03/24/2025 5:04 PM [facility] Alkaline Phosphatase 116 42 - 121 unit/L 03/24/2025 5:04 PM [facility] Total Protein 7.3 6.0 - 8.0 g/dL 03/24/2025 5:04 PM EST [facility] Albumin 3.9 3.2 - 5.0 g/dL 03/24/2025 5:04 PM EST [facility] Total Bilirubin 0.4 0.0 - 1.4 mg/dL 03/24/2025 5:04 PM EST [facility] Blood Venous blood specimen / Unknown Venipuncture / Unknown 03/24/2025 12:17 PM EST 03/24/2025 12:17 PM EST Maddy JENSEN LAB BLOOD ORDERABLES Fin al Result [facility] [address] [place] [address], * External clinical lab (01/28/2025) Only the most recent of6 resultswithin the time period is included. Provider [facility] BLOOD ORDERABLES Fin al Result * ME ARTHROCENTESIS/ASPIRATION/INJECTION MAJOR JOINT/BURSA W/O U/S GUIDANCE (01/22/2025 9:45 AM EDT) Deven Welsh PA - 01/22/2025 9:45 AM EDT MIKEY Harris 01/22/2025 11:52 AM L Inj/Asp: R knee Indications: pain Details: 22 G needle, anterolateral approach Medications: 4 mL lidocaine 1 %; 80 mg methylPREDNISolone acetate 80 mg/mL Outcome: tolerated well, no immediate complications Informed Consent: Site: Knee Laterality: Right Relevant images/test results available and reviewed: yes Health status cleared: Yes Procedure/treatment, purpose, treatment alternatives, risks/potential complications and benefits explained: yes Risk/complications/benefits details: Risks include but are not limited to: The treatment may not accomplish the desired results. Additionally bleeding, infection, damage to tendon, nerve, cartilage, muscle; thinning or lightening of the skin in the area of injection; flushing or redness of the face, elevated blood pressure or blood sugar, allergic reaction, rash, increased pain Benefits include relief of inflammation and pain Patient questions answered: yes Patient agrees, verbalizes understanding, and wants to proceed: yes Consent given by: Patient Informed consent discussion completed by Physician/RUBEN with patient: Verbal Pre-procedure timeout performed: yes us Deven JENSEN IN CLINIC/BEDSIDE ORDERABLES Fin al Result * XR Ribs w Chest 3+ Views Right (01/21/2025 10:22 AM EDT) Anatomical Region Laterality Modality Body Right Radiographic Vivienne ging 01/21/2025 1:02 PM EDT Impressions 01/21/2025 1:09 PM EDT No right rib abnormality detected. No evidence of an acute chest process. -------- FINAL REPORT -------- Dictated By: Precious Sorto Dictated Date: 01/21/2025 13:02 ET Assigned Physician: Precious Sorto Reviewed and Electronically Signed By: Precious Sorto Signed Date: 01/21/2025 13:09 ET Workstation ID: [id number] Transcribed By: Self Edit Transcribed Date: 01/21/2025 13:02 ET Narrative 01/21/2025 1:09 PM EDT EXAM: Chest and unilateral ribs x-ray HISTORY: Right anterior lower chest wall pain. COMPARISON: Chest radiography 06/07/2015 FINDINGS: PA view of the chest and 3 views of right ribs performed. No right rib fracture or focal rib lesion identified. No focal infiltrate, pleural effusion, or evidence of pulmonary edema. No pneumothorax. Heart is top normal in size as before. Tortuous thoracic aorta again noted. Mediastinal contours have similar appearance. Multilevel bridging endplate osteophytes in the thoracolumbar spine. Procedure Note Precious Sorto MD - 01/21/2025 EXAM: Chest and unilateral ribs x-ray HISTORY: Right anterior lower chest wall pain. COMPARISON: Chest radiography 06/07/2015 FINDINGS: PA view of the chest and 3 views of right ribs performed. No right rib fracture or focal rib lesion identified. No focal infiltrate, pleural effusion, or evidence of pulmonary edema. Nopneumothorax. Heart is top normal in size as before. Tortuous thoracicaorta again noted. Mediastinal contours have similar appearance.Multilevel bridging endplate osteophytes in the thoracolumbar spine. IMPRESSION: No right rib abnormality detected. No evidence of an acute chestprocess. -------- FINAL REPORT -------- Dictated By: Precious Sorto Dictated Date: 01/21/2025 13:02 ET Assigned Physician: Precious Sorto Reviewed and Electronically Signed By: Precious Sorto Signed Date: 01/21/2025 13:09 ET Workstation ID: [id number] Transcribed By: Self Edit Transcribed Date: 01/21/2025 13:02 ET [facility] PROCED[facility] Final Result * COLONOSCOPY Anesthesia - MAC; [facility] ENDOSCOPY (10/29/2024 8:58 AM EDT) Anatomical Region Laterality Modality Endoscopy 10/29/2024 8:32 AM EDT Impressions 10/29/2024 9:01 AM EDT - Anal fissure found on perianal exam. - Normal mucosa in the entire examined colon. Biopsied. - Diverticulosis in the entire examined colon. - Internal hemorrhoids. - Anal fissure. Recommendation: - Await pathology results. - Repeat colonoscopy in 10 years for screening purposes. Narrative 10/29/2024 9:01 AM EDT [facility] Patient Name: Christos Her Procedure Date: 10/29/2024 8:32 AM Date of : 1965 Age: 59 Gender: Male Note Status: Finalized Attending MD: Gm Armando MD, Procedure Date No Time: 10/29/2024 Procedure: Colonoscopy Indications: Evaluation of unexplained GI bleeding presenting with Hematochezia, Chronic diarrhea Providers: Gm Armando MD Referring MD: Gm Armando MD Medicines: Monitored Anesthesia Care Complications: No immediate complications. Estimated blood loss: Minimal. Estimated Blood Loss: Estimated blood loss was minimal. Procedure: Pre-Anesthesia Assessment: - Prior to the procedure, a History and Physical was performed, and patient medications and allergies were reviewed. The patient is competent. The risks and benefits of the procedure and the sedation options and risks were discussed with the patient. All questions were answered and informed consent was obtained. Patient identification and proposed procedure were verified by the physician, the nurse, the harvester operator and the missile tracking technician in the pre-procedure area in the endoscopy suite. Mental Status Examination: alert and oriented. Airway Examination: normal oropharyngeal airway and neck mobility. Respiratory Examination: clear to auscultation. CV Examination: normal. Prophylactic Antibiotics: The patient does not require prophylactic antibiotics. Prior Anticoagulants: The patient has taken no anticoagulant or antiplatelet agents. ASA Grade Assessment: III - A patient with severe systemic disease. After reviewing the risks and benefits, the patient was deemed in satisfactory condition to undergo the procedure. The anesthesia plan was to use monitored anesthesia care (MAC). Immediately prior to administration of medications, the patient was re-assessed for adequacy to receive sedatives. The heart rate, respiratory rate, oxygen saturations, blood pressure, adequacy of pulmonary ventilation, and response to care were monitored throughout the procedure. The physical status of the patient was re-assessed after the procedure. After I obtained informed consent, the scope was passed under direct vision. Throughout the procedure, the patient's blood pressure, pulse, and oxygen saturations were monitored continuously. The Colonoscope was introduced through the anus and advanced to the cecum, identified by appendiceal orifice and ileocecal valve. The colonoscopy was performed without difficulty. The patient tolerated the procedure well. The quality of the bowel preparation was good. Findings: An anal fissure was found on perianal exam. Normal mucosa was found in the entire colon. Biopsies for histology were taken with a cold forceps from the ascending colon for evaluation of microscopic colitis. Estimated blood loss was minimal. Scattered small and large-mouthed diverticula were found in the entire colon. Internal hemorrhoids were found during retroflexion. The hemorrhoids were Grade I (internal hemorrhoids that do not prolapse). A small anal fissure was found in the anal canal. Procedure Code(s): --- Professional --- 10341, Colonoscopy, flexible; with biopsy, single or multiple Diagnosis Code(s): --- Professional --- K52.9, Noninfective gastroenteritis and colitis, unspecified K92.1, Melena (includes Hematochezia) CPT copyright 2020 [employer]. All rights reserved. The codes documented in this report are preliminary and upon siding mechanic review may be revised to meet current compliance requirements. Gm Armando MD 10/29/2024 9:01:43 AM This report has been signed electronically.Gm Armando MD Number of Addenda: 0 Note Initiated On: 10/29/2024 8:32 AM Scope Withdrawal Time: 0 hours 15 minutes 14 seconds Scope In: 8:36:27 AM Scope Out: 8:59:00 AM Endoscopy Department at [facility] - [address] [place] [phone] Procedure Note Gm Armando MD - 10/29/2024 [facility] Patient Name: Christos Her Procedure Date: 10/29/2024 8:32 AM Date of : 1965 Age: 59 Gender: Male Note Status: Finalized Attending MD: Gm Armando MD, Procedure Date No Time: 10/29/2024 Procedure: Colonoscopy Indications: Evaluation of unexplained GI bleeding presentingwith Hematochezia, Chronic diarrhea Providers: Gm Armando MD Referring MD: Gm Armando MD Medicines: Monitored Anesthesia Care Complications: No immediate complications. Estimated blood loss: Minimal. Estimated Blood Loss: Estimated blood loss was minimal. Procedure: Pre-Anesthesia Assessment: - Prior to the procedure, a History and Physicalwas performed, and patient medications and allergieswere reviewed. The patient is competent. The risks and benefits of the procedure and the sedation optionsand risks were discussed with the patient. Allquestions were answered and informed consent was obtained. Patient identification and proposed procedure were verified by the physician, the nurse, theanesthetist and the missile tracking technician in the pre-procedure area in the endoscopy suite. Mental Status Examination: alertand oriented. Airway Examination: normal oropharyngeal airway and neck mobility. Respiratory Examination: clear to auscultation. CV Examination: normal. Prophylactic Antibiotics: The patient does notrequire prophylactic antibiotics. Prior Anticoagulants: The patient has taken no anticoagulant or antiplatelet agents. ASA Grade Assessment: III - A patient with severe systemic disease. After reviewing the risksand benefits, the patient was deemed in satisfactory condition to undergo the procedure. The anesthesia plan was to use monitored anesthesia care (MAC). Immediately prior to administration of medications, the patient was re-assessed for adequacy to receive sedatives. The heart rate, respiratory rate, oxygen saturations, blood pressure, adequacy of pulmonary ventilation, and response to care were monitored throughout the procedure. The physical status ofthe patient was re-assessed after the procedure. After I obtained informed consent, the scope was passed under direct vision. Throughout theprocedure, the patient's blood pressure, pulse, and oxygen saturations were monitored continuously. The Colonoscope was introduced through the anus and advanced to the cecum, identified by appendiceal orifice and ileocecal valve. The colonoscopy was performed without difficulty. The patient tolerated the procedure well. The quality of the bowel preparation was good. Findings: An anal fissure was found on perianal exam. Normal mucosa was found in the entire colon.Biopsies for histology were taken with a cold forceps fromthe ascending colon for evaluation of microscopiccolitis. Estimated blood loss was minimal. Scattered small and large-mouthed diverticula were found in the entire colon. Internal hemorrhoids were found duringretroflexion. The hemorrhoids were Grade I (internal hemorrhoids that do not prolapse). A small anal fissure was found in the anal canal. Procedure Code(s): --- Professional --- 52207, Colonoscopy, flexible; with biopsy, singleor multiple Diagnosis Code(s): --- Professional --- K52.9, Noninfective gastroenteritis and colitis, unspecified K92.1, Melena (includes Hematochezia) CPT copyright 2020 [employer]. All rights reserved. The codes documented in this report are preliminary and upon siding mechanic reviewmay be revised to meet current compliance requirements. Gm Armando MD 10/29/2024 9:01:43 AM This report has been signed electronically.Gm Armando MD Number of Addenda: 0 Note Initiated On: 10/29/2024 8:32 AM Scope Withdrawal Time: 0 hours 15 minutes 14 seconds Scope In: 8:36:27 AM Scope Out: 8:59:00 AM Endoscopy Department at [facility] - [address] [place] [phone] IMPRESSION: - Anal fissure found on perianal exam. - Normal mucosa in the entire examined colon.Biopsied. - Diverticulosis in the entire examined colon. - Internal hemorrhoids. - Anal fissure. Recommendation: - Await pathology results. - Repeat colonoscopy in 10 years for screening purposes. Gm Armando MD GI~PROCEDURE ORDERABLES Fin al Result * (ABNORMAL) Lipid panel with reflex to direct LDL (07/28/2024 2:18 PM EDT) Cholesterol 122 0 - 200 mg/dL LAB CHEMISTRY METHOD 07/28/2024 5:01 PM EDT [facility] Triglycerides 115 0 - 150 mg/dL LAB CHEMISTRY METHOD 07/28/2024 5:01 PM EDT [facility] HDL 32(L) >=40 mg/dL LAB CHEMISTRY METHOD 07/28/2024 5:01 PM EDT [facility] LDL Calculated 67 0 - 100 mg/dL LAB CHEMISTRY METHOD 07/28/2024 5:01 PM EDT [facility] VLDL Cholesterol Christo 23 mg/dL LAB CHEMISTRY METHOD 07/28/2024 5:01 PM EDT [facility] Non HDL Chol. (LDL+VLDL) 90 <145 mg/dL LAB CHEMISTRY METHOD 07/28/2024 5:01 PM EDT [facility] Chol/HDL Ratio 3.8 0.0 - 4.4 LAB CHEMISTRY METHOD 07/28/2024 5:01 PM EDT [facility] Blood Venous blood specimen / Unknown Venipuncture / Unknown 07/28/2024 2:18 PM EDT 07/28/2024 2:18 PM EDT Elmo New MD LAB BLOOD ORDERABLES Final Result [facility] [address] [place] [address], [place] [phone] * Hepatitis C Screening (08/28/2013) Pathologist [facility] Hepatitis C Screening abstracted us Historical Provider HEALTH MAINTENANCE Final Result from Last 3 Months or Most Recently Relevant to Health Maintenance Insurance [employer] [id number] Care Teams Drum Drier Relationship Specialty Start Date End Date Elmo New MD [address] [place] [address] PCP - General Internal Medicine 11/28/21
--- OUTSIDE RECORDS SUMMARY | 2025-04-22 18:08 | XMS_ITS | Encounter Summary ---
Author Organization [facility] Address [address] [place] [address] Care Team Providers Care Deputy Clerk Of [address] Court Name Role Phone Elmo New MD Primary Care Provider [phone] Reason for Referral * Consultation (Routine) - Authorized Specialty Diagnoses / Procedures Referred By Contact Referred To Contact Orthopaedics / Orthopaedic Surgery Diagnoses Tendinopathy of left shoulder Maddy Lai PA [address] [place] [address] Phone: tel: fax: Orthopedic Surgery [address] [address] Phone: tel: fax: Referral ID Status Reason Start Date Expiration Date Visits Requested Visits Authorized [id number] Authorized Specialty Services Required 03/29/2026 1 1 Encounter Details Date Type Department Care Team (Late st Contact Info) Description 03/29/2025 Results Follow-Up Adult Medicine [address] [phone] Maddy Lai PA [address] [place] [address] Social History Tobacco Use Types Packs/Day Years Used Date Smoking Tobacco: Former Cigarettes 3 Q uit: 05/06/1984 Smokeless Tobacco: Never Alcohol Use Standard Drinks/Week Comments Not Currently [...] Record ed Within the last 3 months, ho w many times did you visit the emergency [...] care for your loved ones. For example, childcare director or elderly care for an older adult? [...] Orientation Straight 08/25/2024 1: 39 PM EDT documented as of this encounter Plan of Treatment Upcoming Encounters Date Type Department Care Team (Late st Contact Info) Description 05/18/2025 2:30 PM EST Office Visit Orthopedics [address] [phone] Deven Harmon PA [address] [place] [phone] 07/29/2025 11:00 AM EDT Office Visit Adult Medicine [address] [phone] Elmo New MD [address] [place] [address] 11/22/2025 1:00 PM EDT Office Visit Gastroenterology - [address] [phone] Yesi Banuelos NP [address] [address] Scheduled Referrals Name Type Priority Associated Diagnoses Order Schedule Ambulatory referral to Orthopedic Outpatient Referral Routine Tendinopathy of left shoulder 1 Occurrences starting 03/29/2025 until 03/29/2026 documented as of this encounter Visit Diagnoses Diagnosis Tendinopathy of left shoulder- Primary documented in this encounter Additional Health Concerns Assessment Noted Time PHQ-9 Depression Total Score: 18 025 1:21 PM EDT documented as of this encounter Care Teams Deputy Clerk Of [address] Court Relationship Specialty Start Date End Date Elmo New MD [address] [place] [address] PCP - General Internal Medicine 11/28/21 documented as of this encounter
--- OUTSIDE RECORDS SUMMARY | 2025-04-22 18:08 | XMS_ITS | Encounter Summary ---
Author Organization [facility] Address [address] [place] [address] Care Team Providers Care Supervisor Tan Room Name Role Phone Elmo New MD Primary Care Provider [phone] Encounter Details Date Type Department Care Team ([facility] st Contact Info) Description 03/25/2025 Results Follow-Up Adult Medicine [address] [phone] Maddy Lai PA [address] [place] [address] Social History Tobacco Use Types Packs/Day Years [...] your loved ones. For example, child care centre director or elderly care for an older [...] 05/18/2025 2:30 PM EST Office Visit Orthopedics - [address] [phone] Deven Harmon PA [address] [place] [phone] 07/29/2025 11:00 AM EDT Office Visit Adult Medicine [place] - [address] [phone] Elmo New MD [address] [place] [address] 11/22/2025 1:00 PM EDT Office Visit Gastroenterology - [address] [phone] Yesi Banuelos NP [address] [address] documented as of this encounter Visit Diagnoses Not on filedocumented in this encounter Additional Health Concerns Assessment Noted Time PHQ-9 Depression Total Score: 18 025 1:21 PM EDT documented as of this encounter Care Teams Supervisor Tan Room Relationship Specialty Start Date End Date Elmo New MD [address] [place] [address] PCP - General Internal Medicine 11/28/21 documented as of this encounter
== END 2025-04-22 14:25 | disposition home or self-care (01) ==
LOC: HO.PMC 13:53
PROVIDERS: PCP Internal Medicine; Visit Provider Nurse Practitioner Family
DX: E11.40 Type 2 diabetes mellitus with diabetic neuropathy, unspecified (principal); M79.671 Pain in right foot; M79.672 Pain in left foot
CPT/HCPCS: 99204

== ENCOUNTER 2025-04-26 13:32 | Outpatient (AMB) | payer OTHER, SELFPAY ==
--- NOTE | 2025-04-26 13:35 | A.OFFVIS_ITS ---
Intake Visit Reasons: 3m BAÑUELOS Allergies lisinopril Allergy (Unknown, Verified 04/26/25 13:41) Cough Medication List - Last Reconciled 04/26/25 by Roshni Freeman CNP atorvastatin 80 mg PO BEDTIME blood sugar diagnostic (OneTouch Ultra Test strips) As directed dulaglutide (Trulicity) mg subcut QWEEK insulin glargine (Lantus Solostar U-100 Insulin) 63 units subcut BID metformin 1,000 mg PO BID pregabalin 200 mg PO BID 30 days sertraline 50 mg PO DAILY 90 days triazolam 0.5 mg (2 x 0.25 mg) PO BEDTIME PRN 30 days HPI Comments Details: He was seen by pain management last week for painful diabetic neuropathy. Ga bapentin was discontinued and he was started on Lyrica which seemed to be helping. Tingling was a bit better and legs were not bothering him at night as much. Sleep has been a little better the last 3 days since starting Lyrica, able to fall asleep easier. Blood sugar has been a little high. He has appointment with podiatry next month. He started PT for knee OA. No falls. Increased dose of triazolam 0.50mg seemed to be helping, sleeping about 7-8 hours/night and feels rested when he wakes. No medication side effects. He was unable to get sleep study done. He was seen at ER on 04/23/2025 for kidney stone, prescribed oxycodone. Sertraline was helping with mood. Previously was having cramping or shooting-type pain in legs during day and night. Tingling in both legs, R > L. Taking gabapentin 900mg in the morning and 1200mg at bedtime. OA pains in both knees, following with orthopedics. Has tried cortisone injections, did not help and was apparently not approved for gel injections. There was a period of time where he was having trouble getting insulin refilled due to insurance prior auth requirements and was without medication for few days (which his PCP was apparently aware of). He was also with Trulicity for about 10 weeks earlier this year. Previously, was taking triazolam between 8-9pm and falling asleep around 1-2am, sometimes later. He was sleeping about 6-7 hours/night with medication, but did not feel rested when he woke up. He saw [facility] for sleep disorder in 12/2024. A1c in 02/2024 was 9.0. Memory was about the same. Noticed memory decline over past year with some trouble with word recall. At least 3 times while washing the dishes, he forgot which side of the faucet was for hot or cold water. Has been out of work since 2021. Has a major worsening of insomnia starting around 06/2023, taking 5 hrs to fall asleep and sleeping for 3 hrs. Not working. No naps in the day. He has tried Trazodone 150mg, Hydroxyzine 75mg, Melatonin 10mg, Amitriptyline 30mg, Mirtazapine 22.5mg, and Benadryl without benefit, just made him groggy. Burning sensation, shooting pains, and numbness/tingling in legs, worse after standing for longer periods of time. Feet feel like they are getting squeezed when lay down at night. Feet feel like lead. A1c down to 6.0 in the past. He had paresthesia since 2020 that started in his feet with tingling and numbness and now goes up all the way to his thighs. The symptoms are increased in 2021 and by 2022, his feet were mostly numb and tingly. Previously, he had shooting pains tingling and bee stings in legs and thighs which kept him up at night. Occasionally his right hand goes to sleep and becomes numb and tingly during the night. His mother has a history of neuropathy unrelated to diabetes. [facility] Medical History Hyperlipemia HTN (hypertension) Type 2 diabetes mellitus Family History Mother Neuropathy Social History Patient Tobacco Use Status: Never used Tobacco e-Cigarette/Vaping Use: Never Used Review of Systems Const Denies chills, Denies daytime sleepiness, Reports difficulty sleeping, Denies fatigue, Denies fever(s), Denies frequent falls, Denies headache(s), Denies increased appetite, Denies poor appetite, Denies snoring, Denies weakness, Denies weight gain and Denies weight loss Eyes Denies loss of vision ENT Denies vertigo, Denies dizziness, Denies headache(s) and Denies neck pain Card Denies chest pain at rest, Denies chest pain with activity, Denies syncope, Denies leg edema, Denies palpitations, Denies dyspnea and Denies dyspnea on exertion Resp Denies cough, Denies dyspnea, Denies dyspnea on exertion and Denies snoring GI Denies abdominal pain, Denies constipation, Denies heartburn, Denies diarrhea and Denies nausea Denies urinary frequency, Denies urinary incontinence and Denies urinary urgency Musc Denies abnormal gait, Denies back pain, Denies myalgias, Denies arthralgias, Denies neck pain, Reports numbness and Reports tingling Neuro Denies abnormal gait, Denies vertigo, Denies dizziness, Denies syncope, Denies frequent falls, Denies headache(s), Denies lack of coordination, Denies loss of vision, Denies memory loss, Reports numbness, Denies Other visual disturbances, Denies restless legs, Denies seizure-like activity, Reports tingling, Denies paresthesias, Denies tremor(s) and Denies weakness Psych Reports anxiety, Reports depression, Denies auditory hallucinations, Denies memory loss and Denies visual hallucinations Endo Denies fatigue and Denies palpitations Physical Exam Const Other: General Appearance:? normal, in no acute distress. Heart:? S1, S2 normal, no murmurs. Lungs:? clear anteriorly and posteriorly. Musculoskeletal:? normal. Extremities:? no edema. Psych:? alert, oriented, cognitive function intact, cooperative with exam. Neuro Other: Abnormal Neurological Findings:?Absent ankle reflexes. Decreased vibration and pinprick sensation below the ankle on the left and below the mid tarsal level on the right. Mental Status: alert and oriented X 3. Normal attention, orientation, memory, and affect. Cranial Nerves: Pupils are equal, round, and reactive to light. External ocular muscles are intact. Visual rodriguez are full, no ptosis. Face is symmetrical, no facial weakness or droop. Facial sensations are normal. Tongue protrudes in midline. Palate elevates symmetrically. Shoulder shrugging is normal Motor Examination: Normal muscle tone, bulk and strength. No atrophy or fasciculations. No drift of the extended upper extremities. DTR 2+ with absent AJs. Plantars are flexor. Sensory Exam: As above, otherwise normal light touch, temperature, pinprick, vibration, and joint-position sensations. Rhomberg sign is absent. Coordination: No ataxia. No titubation. Gait Exam: Slow and cautious. Cerebellar Signs: [id number] is okay. Extrapyramidal System: No tremor, rigidity with normal facial expressions. No bradykinesia. No bradyphrenia. Normal arm swing and posture. No propulsion or retropulsion. Speech: Normal. Results Reviewed Results Reviewed: Laboratory Tests 01/28/25 14:44 WBC 10.8 RBC 4.94 Hgb 13.6 L Hct 41.9 L MCV 84.8 MCH 27.5 MCHC 32.5 RDW 13.3 Plt Count 352 MPV 9.3 L Sodium 139 Potassium 4.9 Chloride 102 Carbon Dioxide 31 H Anion Gap 11 L BUN 11 Creatinine 0.66 Estimated GFR > 60 Random Glucose 228 H Hemoglobin A1c % 9.9 H Calcium 9.6 Iron 47 TIBC 266 % Saturation 18 Unsat Iron Binding 219 Ferritin 97 Total Bilirubin 0.5 AST 27 ALT 32 Alkaline Phosphatase 114 Total Protein 8.0 Albumin 4.3 Vitamin B1 108 H Vitamin B6 9.3 Vitamin B12 789 Methylmalonic Acid 83 25-OH Vitamin D Total 44.3 Folate 14.5 Homocysteine 7.7 TSH 0.90 01/21/23 NCV/EMG Upper extremities: Normal motor and sensory nerve conduction velocities in the upper extremities. Normal EMG in the right C5-T1 innervated muscles. 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 EMG of the L4-S1 innervated muscles is consistent with chronic neuropathic changes. Labs 02/2024 (by PCP): CBC, CMP, TSH, Vit B12, Vit D ok CT brain 03/2024: No acute intracranial pathology EEG 04/17/2024: WNL Assessment & Plan Assessment & Plan (1) Insomnia: Code(s): G47.00 - Insomnia, unspecified Category: Medical Qualifiers: Insomnia type: unspecified Qualified Code(s): G47.00 - Insomnia, unspecified Plan: Lab results reviewed. He did not have sleep study done and test was requested again. Continue triazolam 0.25mg 2 tablet at bedtime as needed for sleep #60 for 30 days. Follow up after testing or sooner as needed. (2) Anxiety and depression: Code(s): F41.9 - Anxiety disorder, unspecified; F32.A - Depression, unspecified Category: Medical Plan: Continue sertraline 50mg 1 tablet daily. (3) Diabetic neuropathy: Code(s): E11.40 - Type 2 diabetes mellitus with diabetic neuropathy, unspecified Category: Medical Qualifiers: Diabetes mellitus type: type 2 Diabetes mellitus complication detail: diabetic polyneuropathy Qualified Code(s): E11.42 - Type 2 diabetes mellitus with diabetic polyneuropathy Plan: He saw pain management earlier this month for painful diabetic neuropathy. Gabapentin was discontinued and he was started on Lyrica. Control blood sugar. Stay physically active, consider using cane for additional support. Follow up with pain management as recommended. Plan Meds tried for sleep: Trazodone 150mg, Hydroxyzine 75mg, Melatonin 10mg, Amitriptyline 30mg, Mirtazapine 22.5mg, Benadryl, Zolpidem, eszopiclone, triazolam Orders: Orders RT home sleep study Today G47.00 - Insomnia, unspecified Coding Level of Care Code Est Pt Level 4 (47837) Diagnoses Insomnia, unspecified type G47.00 Insomnia type: unspecified Anxiety and depression F41.9; F32.A Diabetic polyneuropathy associated with type 2 diabetes mellitus E11.42 Diabetes mellitus type: type 2 Diabetes mellitus complication detail: diabetic polyneuropathy
--- OUTSIDE RECORDS SUMMARY | 2025-04-26 16:58 | XMS_ITS | Clinical Summary ---
Author Organization [facility] [address] [place] [address] Address [address] [place] [address] Phone Care Team Providers Care Stores Laborer Name Role Phone Elmo New MD Primary Care Provider Allergies Active Allergy Reactions Criticality Noted Date Comments Lisinopril Cough 10/26/2024 Shrimp Anaphylaxis High 12/24/2014 Medications blood-glucose meter misc To check sugars E11.9 03/05/20 23 Active medical supply, miscellaneous (MISCELLANEOUS MEDICAL SUPPLY MISC) CPAP Historical (HISTORICAL CPAP) Sig - Route: 13 cm by Nasal route at bedtime. Via nasal mask/ [employer] - Nasal Active pen needle, diabetic 32 gauge x 5/32 needle Use to inject Insulin pen twice daily 11/19/19 24 Active OneTouch UltraSoft Lancets Use to test blood sugar up to four times a day as directed 02/25/20 19 Active triazolam (HALCION) 0.25 mg tablet Take by mouth at bedtime as needed. at bedtime 03/02/20 24 Active OneTouch Ultra Test test strip Use as instructed 100 each 1 07/25/19 25 Active sertraline (ZOLOFT) 50 mg tablet Take 1 tablet (50 mg total) by mouth 1 (one) time each day. 10/20/19 25 Active metFORMIN (GLUCOPHAGE) 500 mg tablet Take 2 tablets (1,000 mg total) by mouth 2 (two) times a day with meals. 360 tablet 1 11/21/19 25 Active gabapentin (NEURONTIN) 300 mg capsule TAKE ONE CAPSULE BY MOUTH DAILY AT BEDTIME IN ADDITION TO GABAPENTIN 600MG THREE TIMES A DAY 90 capsule 1 11/21/19 25 Active atorvastatin (LIPITOR) 40 mg tablet Take 1 tablet (40 mg total) by mouth 1 (one) time each day. 90 tablet 1 11/21/19 25 Active losartan (Cozaar) 25 mg tablet Take 1 tablet (25 mg total) by mouth 1 (one) time each day. 90 each 1 12/23/19 25 Active hydroCHLOROthiazi de (HYDRODIURIL) 25 mg tablet Take 1 tablet (25 mg total) by mouth at bedtime. 90 tablet 1 01/02/20 25 Active gabapentin (NEURONTIN) 600 mg tablet Take 1 tablet (600 mg total) by mouth 3 (three) times a day. In addition to the 300 mg at bedtime 270 tablet 1 01/02/20 25 Active insulin degludec (Tresiba FlexTouch U-100) 100 unit/mL (3 mL) injection penIndications:Ty pe 2 diabetes mellitus with diabetic polyneuropathy, with long-term current use of insulin ([facility] V24, CMS/[facility] V28) Inject 64 Units under the skin 2 (two) times a day. 135 mL 1 02/19/20 25 Active cholecalciferol (VITAMIN D-3) 50 mcg (2,000 unit) tablet TAKE 1 TABLET BY MOUTH DAILY 90 tablet 1 03/09/20 25 Active dulaglutide (Trulicity) 4.5 mg/0.5 mL pen injector injectionIndicati ons:Primary hypertension,Bila teral primary osteoarthritis of knee,Type 2 diabetes mellitus with diabetic polyneuropathy, with long-term current use of insulin ([facility] V24, CMS/[facility] V28) Inject 0.5 mL (4.5 mg total) under the skin every 7 (seven) days. 6 mL 1 03/25/20 25 Active tiZANidine (Zanaflex) 4 mg capsule Take 1 capsule (4 mg total) by mouth at bedtime. 90 capsule 03/25/20 25 Active celecoxib (CeleBREX) 100 mg capsule Take 1 capsule (100 mg total) by mouth 2 (two) times a day with meals. 28 capsule 03/25/20 25 Active ferrous sulfate 325 mg (65 mg elemental iron) tablet TAKE ONE TABLET BY MOUTH EVERY DAY 90 tablet 1 04/09/20 Active ferrous sulfate 325 mg (65 mg elemental iron) tablet Take 1 tablet (325 mg total) by mouth 1 (one) time each day. 90 tablet 1 07/25/19 25 2024 Discontinued Active Problems Problem Noted Date Diagnosed Date Bilateral primary osteoarthritis of knee 025 Anxiety and depression 07/23/2024 Transaminitis 03/26/2024 Insomnia [...] Department Care Team Description 03/29/2025 Results Follow-Up Adult [address] [phone] Maddy Lai PA 03/25/2025 2:55 PM EST - 03/25/2025 11:59 PM EST Hospital Encounter [address] [phone] Chronic left shoulder pain Discharge Disposition: Home or Self Care 03/25/2025 2:45 PM EST Office Visit [address] [phone] Maddy Lai PA Primary hypertension (Primary Dx); Bilateral primary osteoarthritis of knee; Type 2 diabetes mellitus with diabetic polyneuropathy, with long-term current use of insulin (CMS/HCC V24, CMS/HCC V28); Chronic left shoulder pain; Mixed hyperlipidemia; Osteoarthritis of spine with radiculopathy, lumbar region; Right-sided chest wall pain 03/25/2025 Results Follow-Up Adult Medicine [address] [phone] Maddy Lai PA 03/24/2025 12:10 PM EST Lab Draw Station [address] Bilateral primary osteoarthritis of knee; Primary hypertension; Type 2 diabetes mellitus with diabetic polyneuropathy, with long-term current use of insulin ([facility] V24, [facility] V28); Poorly-controlled hypertension; Poorly controlled diabetes mellitus ([facility] V24, [facility] V28) from Last 3 Months Immunizations Immunization Administration [...] Date Site/Laterality Comments OTHER SURGICAL HISTORY PROCEDURE: MN OPTX ANKLE DISLOCATION W/REPAIR/INT/XTRNL FIXJ TONSILLECTOMY 16 YO PROCEDURE: HISTORICAL TONSILLECTOMY OTHER SURGICAL HISTORY 02/28/2015 PROCEDURE: COLONOSCOPY, SURGICAL UPPER GASTROINTESTINAL ENDOSCOPY 02/28/2015 PROCEDURE: MN UPPER GI ENDOSCOPY PERFORMED; COMMENT: Biopsies performed OTHER SURGICAL HISTORY PROCEDURE: MN RADIAL KERATOTOMY ESOPHAGOGASTRODUODENOSCOPY 01/04/2021 PROCEDURE: MN EGD TRANSORAL BIOPSY SINGLE/MULTIPLE; COMMENT: no significant abnormality noted. biopsy pending Medical History Medical History Date Comments Back pain DX:Back pain; CO MMENT: SPURRING Ankle fracture AGE 26 DX:Ankle fractur e; COMMENT: LEFT History of drug abuse ([facility]/ [facility] V24, [facility] V28) 12/04/2012 DX:History of drug abuse (HC C) Type II or unspecified type diabetes mellitus with unspecified complication, not stated as uncontrolled DX:Type II or unspecified ty pe diabetes mellitus with unspecified complication, not stated as uncontrolled Testosterone deficiency DX:Testo sterone deficiency Iron deficiency anemia DX:Iron d eficiency anemia Hepatic steatosis DX:Hepatic romina atosis Chronic systolic heart failu re ([facility] [place], [facility] V28) DX:Chronic systolic heart f ailure ([facility]); COMMENT: EF 50% echocardiogram 01/2017 Family History [...] 1 daughter age Evy Father (Age 70) OR, DM Maternal Grandfather Maternal Grandmother Mother Alive [...] care for your loved ones. For example, exceptional children teacher or elderly care for an older adult? [...] 05/18/2025 2:30 PM EST Office Visit Orthopedics [address] [phone] Deven Harmon PA [address] [place] [phone] 07/29/2025 11:00 AM EDT Office Visit Adult Medicine [place] - [address] [phone] Elmo New MD [address] [place] [phone] 11/22/2025 1:00 PM EDT Office Visit Gastroenterology - [address] [phone] Yesi Banuelos NP [address] [address] Health Maintenance Due Date Last Done Comments [...] 11/16/2014 11/16/2013 HIV Screening 04/14/2022 COVID-19 Vaccine (4 - season) 2025 02/18/2021, 08/06/2020, 07/16/2020 Influenza Vaccine [...] polyneuropathy, with long-term current use of insulin ([facility] V24, CMS/HCC V28) Poorly-controlled hypertension Poorly controlled [...] polyneuropathy, with long-term current use of insulin ([facility] V24, [facility] V28) Poorly-controlled hypertension Poorly controlled diabetes mellitus ([facility] V24, [facility] V28) EXTERNAL CLINICAL LAB 01/28/2025 EXTERNAL CLINICAL LAB 01/28/2025 EXTERNAL CLINICAL LAB 01/28/2025 EXTERNAL CLINICAL LAB 01/28/2025 EXTERNAL CLINICAL LAB 01/28/2025 EXTERNAL CLINICAL LAB 01/28/2025 COLONOSCOPY Routine 10/29/2024 8:58 AM EDT Bright red blood per rectum Diarrhea, unspecified type Chronic upper abdominal pain LIPID PANEL WITH REFLEX TO DIRECT LDL Routine 07/28/2024 2:18 PM EDT Type 2 diabetes mellitus with diabetic polyneuropathy, with long-term current use of insulin ([facility] V24, [facility] V28) Primary hypertension Transaminitis Mixed hyperlipidemia AVILA on CPAP Morbid obesity with BMI of 40.0-44.9, adult ([facility] V24, [facility] V28) Insomnia, unspecified type Anxiety and depression [...] Signed Date: 03/26/2025 09:00 ET Workstation ID: [id number] Transcribed By: Self Edit Transcribed Date: 03/26/2025 [...] Signed Date: 03/26/2025 09:00 ET Workstation ID: [id number] Transcribed By: Self Edit Transcribed Date: 03/26/2025 08:57 ET Maddy JENSEN IMG XR PROCEDURES Final Result * (ABNORMAL) CBC auto differential (03/24/2025 12:17 PM EST) WBC 11.6(H) 4.8 - 10.8 K/mcL LAB HEMETOLOGY METHOD 03/24/2025 3:44 PM EST [facility] RBC 5.00 4.50 - 5.50 M/mcL LAB HEMETOLOGY METHOD 03/24/2025 3:44 PM EST [facility] Hemoglobin 13.5 13.5 - 17.5 g/dL LAB HEMETOLOGY METHOD 03/24/2025 3:44 PM [facility] Hematocrit 41.7(L) 42.0 - 54.0 % LAB HEMETOLOGY METHOD 03/24/2025 3:44 PM [facility] MCV 84.2 79.0 - 98.0 FL LAB HEMETOLOGY METHOD 03/24/2025 3:44 PM [facility] MCH 27.3 27.0 - 32.0 pcg LAB HEMETOLOGY METHOD 03/24/2025 3:44 PM [facility] MCHC 32.4 32.0 - 37.0 g/dL LAB HEMETOLOGY METHOD 03/24/2025 3:44 PM [facility] RDW 13.4 11.0 - 15.0 % LAB HEMETOLOGY METHOD 03/24/2025 3:44 PM [facility] Platelets 341 130 - 400 K/mcL LAB HEMETOLOGY METHOD 03/24/2025 3:44 PM [facility] MPV 10.2 7.0 - 11.0 FL LAB HEMETOLOGY METHOD 03/24/2025 3:44 PM [facility] NRBC 0.0 <1.0 % LAB HEMETOLOGY METHOD 03/24/2025 3:44 PM [facility] NRBC Absolute 0.00 <0.10 K/mcL LAB HEMETOLOGY METHOD 03/24/2025 3:44 PM [facility] Neutrophils Relative 68.4 % LAB HEMETOLOGY METHOD 03/24/2025 3:44 PM [facility] Lymphocytes Relative 22.7 % LAB HEMETOLOGY METHOD 03/24/2025 3:44 PM [facility] Monocytes Relative 6.3 % LAB HEMETOLOGY METHOD 03/24/2025 3:44 PM [facility] Eosinophils Relative 1.7 % LAB HEMETOLOGY METHOD 03/24/2025 3:44 PM EST [facility] Basophils Relative 0.5 % LAB HEMETOLOGY METHOD 03/24/2025 3:44 PM [facility] Immature Granulocytes Relative 0.4 % LAB HEMETOLOGY METHOD 03/24/2025 3:44 PM [facility] Neutrophils Absolute 7.89(H) 1.50 - 7.00 K/mcL LAB HEMETOLOGY METHOD 03/24/2025 3:44 PM EST [facility] Lymphocytes Absolute 2.62 1.00 - 5.00 K/mcL LAB HEMETOLOGY METHOD 03/24/2025 3:44 PM [facility] Monocytes Absolute 0.73 0.20 - 1.00 K/mcL LAB HEMETOLOGY METHOD 03/24/2025 3:44 PM [facility] Eosinophils Absolute 0.20 0.00 - 0.50 K/mcL LAB HEMETOLOGY METHOD 03/24/2025 3:44 PM EST [facility] Basophils Absolute 0.06 0.00 - 0.20 K/mcL LAB HEMETOLOGY METHOD 03/24/2025 3:44 PM [facility] Immature Granulocytes Absolute 0.05(H) 0.00 - 0.03 K/mcL LAB HEMETOLOGY METHOD 03/24/2025 3:44 PM [facility] Blood Venous blood specimen / Unknown Venipuncture / Unknown 03/24/2025 12:17 PM EST 03/24/2025 12:17 PM EST Maddy JENSEN LAB BLOOD ORDERABLES Fin al Result [facility] [address] [place] [address], * Microalbumin creatinine urine ratio (03/24/2025 12:17 PM EST) [facility] Creatinine, Urine 148.0 mg/dL 03/24/2025 5:47 PM EST [facility] Microalb, Ur 4.0 0.0 - 29.0 mg/L 03/24/2025 5:47 PM [facility] Microalb/Creat Ratio 3 <30 mg/g creat 03/24/2025 5:47 PM EST [facility] Urine Urine specimen obtained by clean catch procedure / Unknown Non-blood Collection / Unknown 03/24/2025 12:17 PM EST 03/24/2025 12:17 PM EST Maddy JENSEN LAB URINE ORDERABLES Fin al Result Performing Organization Address [facility]/ZIP Co de Phone Number [facility] [address] [place] [address], [place] [phone] * (ABNORMAL) Hemoglobin A1c (03/24/2025 12:17 PM EST) [facility] Hemoglobin A1C 10.1(H) <6.5 % LAB CHEMISTRY METHOD 03/24/2025 9:46 PM [facility] Mean Bld Glu Estim. 243 mg/dL LAB CHEMISTRY METHOD 03/24/2025 9:46 PM [facility] Blood Venous blood specimen / Unknown Venipuncture / Unknown 03/24/2025 12:17 PM EST 03/24/2025 12:17 PM EST Maddy JENSEN LAB BLOOD ORDERABLES Fin al Result [facility] [address] [place] [address], [place] [phone] * (ABNORMAL) Comprehensive metabolic panel (03/24/2025 12:17 PM EST) [facility] Sodium 137 133 - 145 mmol/L 03/24/2025 5:04 PM [facility] Potassium 4.1 3.5 - 5.5 mmol/L 03/24/2025 5:04 PM [facility] Chloride 98 96 - 110 mmol/L 03/24/2025 5:04 PM [facility] CO2 28 21 - 32 mmol/L 03/24/2025 5:04 PM [facility] Anion Gap 11 3 - 11 03/24/2025 5:04 PM [facility] Glucose 233(H) 70 - 100 mg/dL 03/24/2025 5:04 PM [facility] BUN 18 5 - 25 mg/dL 03/24/2025 5:04 PM [facility] Creatinine 0.75 0.70 - 1.30 mg/dL 03/24/2025 5:04 PM [facility] eGFR 103 >=60 mL/min/1. 73m2 03/24/2025 5:04 PM [facility] Comment:Calculation based on the Chronic Kidney Disease Epidemiology Collaboration (CKD-EPI) equation refit without adjustment for race. BUN/Creatinine Ratio 24.0 03/24/2025 5:04 PM [facility] Calcium 9.3 8.5 - 10.5 mg/dL 03/24/2025 5:04 PM [facility] AST (SGOT) 20 10 - 42 unit/L 03/24/2025 5:04 PM [facility] ALT (SGPT) 35 10 - 60 unit/L 03/24/2025 5:04 PM [facility] Alkaline Phosphatase 116 42 - 121 unit/L 03/24/2025 5:04 PM [facility] Total Protein 7.3 6.0 - 8.0 g/dL 03/24/2025 5:04 PM [facility] Albumin 3.9 3.2 - 5.0 g/dL 03/24/2025 5:04 PM EST [facility] Total Bilirubin 0.4 0.0 - 1.4 mg/dL 03/24/2025 5:04 PM EST [facility] Blood Venous blood specimen / Unknown Venipuncture / Unknown 03/24/2025 12:17 PM EST 03/24/2025 12:17 PM EST Maddy Lai PA LAB BLOOD ORDERABLES Fin al Result [facility] [address] [place] [address], * External clinical lab (01/28/2025) Only the most recent of6 resultswithin the time period is included. Provider [facility] LAB BLOOD ORDERABLES Fin al Result * COLONOSCOPY Anesthesia - MAC; [facility] ENDOSCOPY (10/29/2024 8:58 AM EDT) Anatomical Region [...] screening purposes. Narrative 10/29/2024 9:01 AM EDT [facility] GI Patient Name: Christos Her Procedure Date: [...] verified by the physician, the nurse, the air intelligence specialist and the irrigation service technician in the pre-procedure area in the [...] anal canal. Procedure Code(s): --- Professional --- 79242, Colonoscopy, flexible; with biopsy, single or multiple Diagnosis Code(s): --- Professional --- K52.9, Noninfective gastroenteritis and colitis, unspecified K92.1, Melena (includes Hematochezia) CPT copyright 2020 [employer]. All rights reserved. The codes documented in this report are preliminary and upon fat purification worker review may be revised to meet current compliance requirements. Gm Armando MD 10/29/2024 9:01:43 AM This report has been signed electronically.Gm Armando MD Number of Addenda: 0 Note Initiated On: 10/29/2024 8:32 AM Scope Withdrawal Time: 0 hours 15 minutes 14 seconds Scope In: 8:36:27 AM Scope Out: 8:59:00 AM Endoscopy Department at [facility] - [address] [place] [phone] Procedure Note Gm Armando MD - 10/29/2024 [facility] GI Patient Name: Christos Her Procedure Date: [...] the physician, the nurse, theanesthetist and the irrigation service technician in the pre-procedure area in the [...] anal canal. Procedure Code(s): --- Professional --- 54462, Colonoscopy, flexible; with biopsy, singleor multiple Diagnosis Code(s): --- Professional --- K52.9, Noninfective gastroenteritis and colitis, unspecified K92.1, Melena (includes Hematochezia) CPT copyright 1 [employer]. All rights reserved. The codes documented in this report are preliminary and upon fat purification worker reviewmay be revised to meet current compliance requirements. Gm Armando MD 10/29/2024 9:01:43 AM This report has been signed electronically.Gm Armando MD Number of Addenda: 0 Note Initiated On: 10/29/2024 8:32 AM Scope Withdrawal Time: 0 hours 15 minutes 14 seconds Scope In: 8:36:27 AM Scope Out: 8:59:00 AM Endoscopy Department at [facility] - [address] [place] [phone] IMPRESSION: - Anal fissure found on perianal [...] LAB CHEMISTRY METHOD 07/28/2024 5:01 PM EDT [facility] Triglycerides 115 0 - 150 mg/dL LAB CHEMISTRY METHOD 07/28/2024 5:01 PM EDT [facility] HDL 32(L) >=40 mg/dL LAB CHEMISTRY METHOD 07/28/2024 5:01 PM EDT [facility] LDL Calculated 67 0 - 100 mg/dL LAB CHEMISTRY METHOD 07/28/2024 5:01 PM T [facility] VLDL Cholesterol Christo 23 mg/dL LAB CHEMISTRY METHOD 07/28/2024 5:01 PM EDT [facility] Non HDL Chol. (LDL+VLDL) 90 <145 mg/dL LAB CHEMISTRY METHOD 07/28/2024 5:01 PM EDT [facility] Chol/HDL Ratio 3.8 0.0 - 4.4 LAB CHEMISTRY METHOD 07/28/2024 5:01 PM [facility] Blood Venous blood specimen / Unknown Venipuncture / Unknown 07/28/2024 2:18 PM EDT 07/28/2024 2:18 PM EDT Elmo New MD LAB BLOOD ORDERABLES Final Result [facility] [address] [place] [address], * Hepatitis C Screening (08/28/2013) Hepatitis C Screening abstracted us Historical Provider HEALTH MAINTENANCE Final Result from Last 3 Months or Most Recently Relevant to Health Maintenance Insurance [employer] [id number] Care Teams Stores Laborer Relationship Specialty Start Date End Date Elmo New MD [address] [place] [address] PCP - General Internal Medicine 11/28/21
--- OUTSIDE RECORDS SUMMARY | 2025-04-26 16:58 | XMS_ITS | Encounter Summary ---
Author Organization [facility] Address [address] [place] [address] Care Team Providers Care Family Day Care Provider Name Role Phone Elmo New MD Primary Care Provider [phone]- [phone] Encounter Details Date Type Department Care Team ([facility] st Contact Info) Description 03/25/2025 Results Follow-Up Adult Medicine [address] [phone] Maddy Lai PA [address] [place] [address] Social History Tobacco Use Types Packs/Day Years [...] care for your loved ones. For example, early childhood or elderly care for an older adult? [...] 2:30 PM EST Office Visit Orthopedics - [address] [phone] Deven Harmon PA [address] [place] [phone] 07/29/2025 11:00 AM EDT Office Visit Adult Medicine [place] - [address] [phone] Elmo New MD [address] [place] [address] 11/22/2025 1:00 PM EDT Office Visit Gastroenterology - [address] [phone] Yesi Banuelos NP [address] [phone] documented as of this encounter Visit Diagnoses Not on filedocumented in this encounter Additional Health Concerns Assessment Noted Time PHQ-9 Depression Total Score: 18 025 1:21 PM EDT documented as of this encounter Care Teams Family Day Care Provider Relationship Specialty Start Date End Date Elmo New MD [address] [place] [address] PCP - General Internal Medicine 11/28/21 documented as of this encounter
--- OUTSIDE RECORDS SUMMARY | 2025-04-26 16:58 | XMS_ITS | Encounter Summary ---
Author Organization [facility] Address [address] [place] [address] Care Team Providers Care Rehabilitation Attendant Name Role Phone Elmo New MD Primary Care Provider [phone]- [phone] Reason for Referral * Consultation (Routine) - Authorized Specialty Diagnoses / Procedures Referred By Contact Referred To Contact Orthopaedics / Orthopaedic Surgery Diagnoses Tendinopathy of left shoulder Maddy Lai PA [address] [place] [address] Phone: tel: fax: Orthopedic Surgery [address] [phone] Phone: tel: fax: Referral ID Status Reason Start Date Expiration Date Visits Requested Visits Authorized [id number] Authorized Specialty Services Required 03/29/2026 1 1 Encounter Details Date Type Department Care Team (Late st Contact Info) Description 03/29/2025 Results Follow-Up Adult Medicine [address] [phone] Maddy Lai PA [address] [place] [address] Social History Tobacco Use Types Packs/Day Years [...] for your loved ones. For example, child advocate or elderly care for an older adult? [...] 05/18/2025 2:30 PM EST Office Visit Orthopedics [address] [phone] Deven Harmon PA [address] [place] [phone] 07/29/2025 11:00 AM EDT Office Visit Adult Medicine [address] [phone] Elmo New MD [address] [place] [address] 11/22/2025 1:00 PM EDT Office Visit Gastroenterology - [address] [phone] Yesi Banuelos NP [address] [address] Scheduled Referrals Name Type Priority Associated Diagnoses [...] documented as of this encounter Care Teams Rehabilitation Attendant Relationship Specialty Start Date End Date Elmo New MD [address] [place] [address] PCP - General Internal Medicine 11/28/21 documented as of this encounter
== END 2025-04-26 13:53 | disposition home or self-care (01) ==
LOC: HO.HSM 13:33
PROVIDERS: PCP Internal Medicine; Visit Provider Registered Nurse
DX: G47.00 Insomnia, unspecified (principal); F41.9 Anxiety disorder, unspecified; F32.A Depression, unspecified; E11.42 Type 2 diabetes mellitus with diabetic polyneuropathy
CPT/HCPCS: 99214